=== PATIENT | female | born 1950 | race Caucasian/White ===

== ENCOUNTER 2016-05-21 22:06 | Inpatient (IN) ==
[2016-05-22 00:21] LABS: MANUAL DIFF NEEDED? NO
[2016-05-22 00:26] LABS: BASO% 0.6 % (0.0-0.8); EOS# 0.21 X1000 (0.0-0.7); EOS% 1.9 % (0.0-10.0); HEMATOCRIT 40.2 % (37.0-47.0); HEMOGLOBIN 13.3 g/dL (12.0-16.0); IMM GRAN# 0.05 X1000 (0.0-0.04); IMM GRAN% 0.5 % (0.0-0.5); LYMPH# 3.47 X1000 (1.2-3.4); LYMPH% 31.5 % (20.5-51.1); MCH 27.1 PG (27-31); MCHC 33.1 g/dL (33-37); MCV 81.9 FL (81-99); MONO# 0.76 X1000 (0.11-0.59); MONO% 6.9 % (1.7-9.3); MPV 10.2 FL (7.4-10.4); NEUT% 58.6 % (42.2-75.2); PLT 285 X1000 (130-400); RBC 4.91 XMIL (4.2-5.4)
[2016-05-22 00:31] LABS: URINE CULTURE NEEDED? NO; URINE MICRO REVIEW NEEDED? NO; URINE SOURCE CLEAN CATCH
[2016-05-22 00:33] LABS: INR 0.94; PROTIME 9.8 Seconds (9.2-11.7)
[2016-05-22 00:34] LABS: BILIRUBIN URINE NEGATIVE (NEGATIVE); BLOOD URINE NEGATIVE (NEGATIVE); COLOR YELLOW; GLUCOSE URINE 150 mg/dL (NEGATIVE); LEUKOCYTES URINE NEGATIVE (NEGATIVE); NITRITE URINE NEGATIVE (NEGATIVE); PH URINE 5.5; PROTEIN URINE NEGATIVE (NEGATIVE); SP GRAVITY URINE 1.009; TURBIDITY URINE CLEAR (CLEAR); UR EPITHELIAL CELLS <10 /HPF (<10); URINE BACTERIA NEGATIVE /HPF; URINE RBC <10 /HPF (<10); URINE WBC <10 /HPF (<10); UROBILINOGEN URINE NORMAL (NORMAL)
[2016-05-22 00:50] LABS: AGAP 14; ALBUMIN 3.4 g/dL (3.5-5.0); ALKALINE PHOSPHATASE 140 U/L (32-104); BUN 7 mg/dL (8-22); CALCIUM 9.2 mg/dL (8.8-10.2); CHLORIDE 99 mmol/L (98-107); COSMO 274; GOT 19 U/L (10-30); GPT 14 U/L (10-36); POTASSIUM 4.2 mmol/L (3.5-5.1); SODIUM 135 mmol/L (136-145); TCO2 22 mmol/L (25-35); TOTAL BILIRUBIN 0.14 mg/dL (0.20-1.00); TOTAL PROTEIN 6.8 g/dL (6.3-8.3)
[2016-05-22] MEDS ORDERED: LEVAQUIN PO ONE (02:01)
[2016-05-22] MEDS ORDERED: ROCEPHIN 1 GM/NS 1 GM/50 ML IVPB IV ONE (02:02)
[2016-05-22] MEDS ORDERED: NORCO-7.5 PO ONE (03:00)
[2016-05-22] MEDS: NS 1,000 ML IV SCH ×2 (04:55→14:46)
[2016-05-22] MEDS: ULTRAM PO PRN ×3 (05:11→22:50)
--- NOTE | 2016-05-22 05:13 | HISTORY AND PHYSICAL ---
REASON FOR ADMISSION: Shortness of breath, cough productive of greenish sputum for the last 10 days. HISTORY OF PRESENT ILLNESS: Ms. Trinh Rivera is a 65-year-old lady with past medical history of chronic pancreatitis complicated with insulin-requiring diabetes, COPD, possible pancreatic neoplasm, and diverticulosis, who comes in complaining of 10-day history of shortness of breath, which has been getting worse along with chest congestion and a cough productive of greenish sputum. She said the symptoms have worsened over the last 4 days. She denies any orthopnea or PND. She does admit to having intermittent fevers which are subjective but no chills. She complains of severe pleuritic chest pain with her cough but no anginal-type symptoms. No leg swelling. No palpitations or lightheadedness. The patient also complains of left-sided headache which is intermittent without any photophobia or phonophobia, nausea, or vomiting. No focal weakness, numbness or tingling. Said this has been ongoing for 2 weeks, which she says is unusual for her. She has some visual loss but she says it is not related to her headache. She says it is more associated with recent cardiac surgery. The patient also complains of loose greenish stools about 6 per day, but no blood, no melena. Said this is emanating from her rectum even though she has a colostomy and she is concerned she may have an intra-abdominal infection. REVIEW OF SYSTEMS: Notable for diffuse intermittent abdominal pain with no specific aggravating or relieving factors. No nausea, no vomiting or genitourinary complaints. No polyuria, polydipsia, or polyphagia. Patient says she is feeling a little weak otherwise. Her urine is chronically dark and only gets lightened when she hydrate herself. Otherwise, no other complaints. Twelve system review was done and positive findings are noted as above. ALLERGIES: Morphine and penicillins. HOME MEDICATIONS: DuoNeb q.4 hours, amitriptyline 25 mg daily, gabapentin 100 mg q.8 hours, Lexapro 20 mg q.a.m., Lantus 28 units q.a.m. She takes Creon 6000 units with meals, Prilosec 40 mg q.a.m., Ultram 50 mg 1-2 tablets q.6 hours p.r.n. SURGICAL HISTORY: Patient has had a cholecystectomy, , benign tumor excised from the left side of her head. She has had a colostomy performed. SOCIAL HISTORY: Lives with her son. Smokes half a pack a day. No alcohol or illicit drug use. FAMILY HISTORY: One of her members had pancreatic cancer, Alzheimer's and hepatitis C. No diabetes in first-degree relatives. LAB WORK/DIAGNOSTIC DATA: Her chest film suggestive of a lingular infiltrate versus a hilar mass. White count 11,000, hemoglobin 13 and hematocrit 40, platelets 285,000. Glucose 205, alkaline phosphatase 140, albumin 3.4. PT/PTT is normal. Urinalysis is clear. EKG just shows normal sinus rhythm with no ST or changes consistent with ischemia. PHYSICAL EXAMINATION: VITAL SIGNS: Blood pressure 150/88, heart rate 74, respirations 19, temperature is 97.3 degrees, 96% on room air. GENERAL: She is chronically ill, middle-aged woman who is alert and oriented to person, place, and time with normal mood and affect, is slightly anxious. HEENT: Head is normocephalic, atraumatic. Eyes are DENNIS, EOMI. She is anicteric and not pale. ENT and oropharyngeal exam is grossly normal. No central cyanosis. NECK: Supple. No JVD or carotid bruit. No thyromegaly. CHEST: Decreased air entry both lung bell. There are questionable crepitations in the left upper lung. No wheezes. CARDIOVASCULAR: First and second heart sounds heard. No gallops, murmurs, rubs. Rhythm is regular. ABDOMEN: The patient has a colostomy in the left lower quadrant area. There is some mild right upper quadrant tenderness but no rebound or guarding. ABDOMEN: Soft. No mass or organomegaly appreciated. The aforementioned colostomy is draining brownish stool. No blood noted. No melena noted. RECTAL: Deferred. EXTREMITIES: No edema, clubbing or peripheral cyanosis. Pulses distally are diminished but symmetrical in both extremities. NEUROLOGICAL: No focal deficits. SKIN: Intact with no breakdown lesions or erythema. MUSCULOSKELETAL: Exam is grossly normal otherwise. ASSESSMENT: 1. Left-sided pneumonia. 2. Chronic obstructive pulmonary disease. 3. Chronic pancreatitis. 4. Insulin-requiring diabetes. 5. Worsening left-sided headache. Etiology to be determined. 6. Subacute diarrhea. Etiology to be determined. PLAN: At this time, our primary goal now is to treat pneumonia. Due to the patient's frequent exposure to antibiotics and frequent ER visits, and also her chronic underlying lung disease, I think it would be prudent to cover for Pseudomonas. Start patient on Levaquin and Maxipime. Continue with nebulizer treatments. We will also support patient with O2. Regarding patient's diarrhea supposed diarrhea which is greenish, it was already sent off for stool studies most especially C. difficile. I have ordered a CT scan to evaluate her bowel. Regarding her diabetes, the patient will be managed with insulin and Lantus. The former will be in the form of low sliding scale. DVT prophylaxis with Lovenox. The patient be given some fluids to address her diarrhea. cc: Debbie Arias MD MTDD
--- NOTE | 2016-05-22 05:14 | EKG Report ---
Test Performed on : 05/21/2016 10:24:29 PM Test Reason : SOB Blood Pressure : / mmHG Vent. Rate : 085 BPM Atrial Rate : 085 BPM P-R Int : 144 ms QRS Dur : 072 ms QT Int : 378 ms P-R-T Axes : 080 072 073 degrees QTc Int : 449 ms Normal sinus rhythm. with sinus arrhythmia. Biatrial enlargement Abnormal ECG When compared with ECG of 03-JAN-2014 16:36, No significant change was found Unconfirmed Result
[2016-05-22] MEDS: HUMALOG SUBQ SCH ×4 (06:09→21:19)
[2016-05-22 06:45] LABS: MANUAL DIFF NEEDED? NO
[2016-05-22 06:52] LABS: BASO% 0.8 % (0.0-0.8); EOS# 0.28 X1000 (0.0-0.7); EOS% 2.7 % (0.0-10.0); HEMATOCRIT 40.3 % (37.0-47.0); HEMOGLOBIN 13.2 g/dL (12.0-16.0); IMM GRAN# 0.06 X1000 (0.0-0.04); IMM GRAN% 0.6 % (0.0-0.5); LYMPH# 4.04 X1000 (1.2-3.4); MCH 26.9 PG (27-31); MCHC 32.8 g/dL (33-37); MCV 82.2 FL (81-99); MONO# 0.72 X1000 (0.11-0.59); MONO% 6.9 % (1.7-9.3); MPV 10.2 FL (7.4-10.4); PLT 282 X1000 (130-400)
--- NOTE | 2016-05-22 07:31 | Diag Imaging Result Document ---
PROCEDURE NAME: CHEST-2 VIEWS - 05/21/2016 CHEST X-RAY 2 VIEWS: COMPARISON: 10/06/2015. FINDINGS: There is enlargement of the left hilum. There is some ill-defined infiltrate at the left upper lobe as well. Heart size is normal. No pneumothorax or pleural effusion. IMPRESSION: Left upper lobe pneumonia and possible left hilar mass. Chest CT recommended.
[2016-05-22 07:42] LABS: AGAP 13; ALBUMIN 3.2 g/dL (3.5-5.0); ALKALINE PHOSPHATASE 137 U/L (32-104); BUN 7 mg/dL (8-22); CALCIUM 8.8 mg/dL (8.8-10.2); CHLORIDE 102 mmol/L (98-107); COSMO 274; GOT 24 U/L (10-30); GPT 14 U/L (10-36); POTASSIUM 4.1 mmol/L (3.5-5.1); SODIUM 137 mmol/L (136-145); TCO2 22 mmol/L (25-35); TOTAL BILIRUBIN 0.13 mg/dL (0.20-1.00)
[2016-05-22] MEDS: DUONEB (A & A) INH SCH ×3 (08:13→20:05)
[2016-05-22] MEDS ORDERED: INSULIN PEN NEEDLES ONE ×2 (09:03→12:24)
[2016-05-22] MEDS: PRILOSEC PO SCH (09:21)
[2016-05-22] MEDS: CULTURELLE PO SCH ×2 (09:22→21:19)
[2016-05-22] MEDS: MAXIPIME 1 GM/NS 1 GM/50 ML IVPB IV SCH ×2 (09:22→21:19)
[2016-05-22] MEDS: LOVENOX SUBQ SCH (09:22)
[2016-05-22] MEDS: CREON PO SCH (09:22)
[2016-05-22] MEDS: ELAVIL PO SCH (09:22)
[2016-05-22] MEDS: LEXAPRO PO SCH (09:22)
[2016-05-22] MEDS ORDERED: DILAUDID IV ONE (10:44)
--- NOTE | 2016-05-22 10:58 | Diag Imaging Result Document ---
PROCEDURE NAME: THORAX/ABDOMEN/PELVIS - 05/22/2016 CT CHEST, ABDOMEN, AND PELVIS WITH INTRAVENOUS CONTRAST. DOSE REDUCTION PROTOCOL. CT CHEST WITH CONTRAST: COMPARISON: No comparison films. FINDINGS: There are markedly enlarged mediastinal and left hilar lymph nodes. There is narrowing to the left main pulmonary artery and the upper and lower lobe pulmonary arteries. Mild narrowing to the left main stem bronchus and the upper and lower lobe bronchi. There is a small amount of postobstructive atelectasis. There is scarring in the right apex. Mild emphysema. Tiny nodular density laterally in the left upper lobe on image 41. Minimal basilar atelectasis. No pleural effusions. No cardiomegaly. No thoracic aortic aneurysm or dissection. No enlarged axillary lymph nodes. IMPRESSION: Left perihilar mass/adenopathy with postobstructive atelectasis and infiltrates. CT ABDOMEN AND PELVIS WITH INTRAVENOUS CONTRAST: COMPARISON: 01/12/2016. FINDINGS: There are many pancreatic calcifications. There is intrahepatic and extrahepatic biliary ductal dilatation. The pancreatic duct is dilated. No definite filling defect in the distal common bile duct. The appearance of the pancreatic head has changed very little. The gallbladder has been removed. There is fatty infiltration of the liver. The spleen is not enlarged. Normal adrenal glands. There are several renal cysts. No solid renal masses. No hydronephrosis. No aortic aneurysm. Mild atherosclerosis. There is an ostomy in the left abdomen. The bowel loops are not dilated. There are scattered diverticula in the distal colon. No adjacent inflammation. Normal appendix. The urinary bladder is distended and appears normal. Normal uterus. No pelvic mass. No free air. IMPRESSION: Stable CT of the abdomen and pelvis.
[2016-05-22] MEDS: LANTUS SUBQ SCH (12:27)
--- NOTE | 2016-05-22 16:59 | CONSULTATION ---
DATE OF CONSULTATION: 05/22/2016 REFERRING PHYSICIAN: Debbie Arias M.D. PRIMARY HOSPITALIST: Agustin Zhao M.D. INDICATION FOR CONSULTATION: 1. Pancreatitis. 2. Abdominal pain. 3. Diarrhea. HISTORY OF PRESENT ILLNESS: The patient is a 65-year-old, white female, who has been followed in our clinic for long-standing chronic pancreatitis complicated by diabetes, pancreatic mass consistent with possible neoplasm, diverticulitis requiring a diverting colostomy and COPD. The patient was admitted with shortness of breath and was subsequently found to have a pneumonia. From a GI perspective, she reports increased abdominal pain, secondary to her pancreatitis. She noted increased ostomy output intermittently over the last week. She denies bleeding. She is concerned because she recently noted greenish stools from her rectum even though she has a colostomy. She describes diffuse abdominal tenderness but no nausea or vomiting. She denies fevers and chills. PAST MEDICAL HISTORY: 1. Chronic calcific pancreatitis with possible mass effect. The mass area has been biopsied at least [address] Valencia in [place] as well as [facility] with no evidence of malignancy found. However, she has elevated alpha fetoprotein level, that is worrisome for malignancy. 2. Possible liver mass. 3. Diabetes mellitus. 4. Gastroparesis. 5. Acute diverticulitis status post end colostomy. 6. Diabetic neuropathy. 7. Restless legs. 8. GERD. 9. Obstructive sleep apnea. 10. Chronic nicotine use. 11. Protein calorie malnutrition. 12. Cirrhosis. 13. Depression. 14. Pancreatic cystic lesion, chronic. 15. History of partial small bowel obstruction. 16. Pancreatic insufficiency requiring pancreatic enzyme replacement. 17. Common bile duct obstruction status post ERCP with stent placement and subsequent removal. 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 She is no longer actively drinking. PAST SURGICAL HISTORY: 1. End-colostomy secondary to severe acute diverticulitis. 2. EUS with FNA of the pancreatic mass x3. 3. ERCP with stent placement followed by ERCP with stent removal. 4. Multiple EGDs. 5. Multiple colonoscopies. SOCIAL HISTORY: Patient smokes 1 pack of cigarettes per day. She has smoked for more than 32 years. She states that she is not interested in smoking cessation. In the past , she drank heavily from the time she arose to the time she went to bed. She has been abstinent for approximately 10 years. She is disabled and lives in [place] with her son. One of her children is . ALLERGIES: 1. Morphine. 2. Penicillin. FAMILY HISTORY: Her father of cancer but she is not sure what kind. OBJECTIVE DATA: General: On exam, she is in no acute distress. Vital Signs: Her blood pressure is 142/70, pulse is 91, respirations 20, temperature of 99 degrees. HEENT: Negative for jaundice. Her conjunctivae are normal. Her oropharyngeal mucosa membranes are slightly dry. Lung: Clear to auscultation on the right. On the left, she has end expiratory wheezes with occasional rhonchi and scattered priest. There are E-A changes suggestive of possible pneumonia. Cardiovascular: She has regular rate and rhythm with no gallops or rubs. Abdomen: Reveals normoactive bowel sounds. The abdomen is soft, but diffusely tender. She has a colostomy in the left lower quadrant. Extremities: Bilaterally are negative for cyanosis, clubbing, or edema. Rectal: Exam was deferred at this time as the patient had been sleeping. OBJECTIVE DATA: Remarkable for hemoglobin of 13.2 with hematocrit of 40.3, and a white count of 10.37. She has 282,000 platelets. Her PT is 9.8 with an INR 0.94. Sodium is 137, potassium 4.1, chloride 102, CO2 22, BUN 7, creatinine 0.7 with a glucose of 130. Calcium is 8.8, total bilirubin 0.13, AST 24, ALT 14, alkaline phosphatase 137, total protein 7.0 with an albumin of 3.2. It should be noted that she has a chronically elevated CEA and CA-19-9. Her alpha fetoprotein is normal. Her tumor markers were last checked in 2016. Chest, abdomen and pelvis CT is remarkable for left hilar mass with adenopathy and postobstructive atelectasis and infiltrate. Her abdomen reveals chronic calcific pancreatitis, fatty liver, and multiple renal cyst. Her ostomy was again visualized. There were diverticula in the colon. There were no acute changes. IMPRESSION: 1. Acute on chronic pancreatitis. 2. Possible diversion colitis in the rectum. 3. Pneumonia. 4. Left perihilar mass with adenopathy. 5. Fatty liver. 6. Alcohol liver disease. 7. Known gastroesophageal reflux disease. 8. No acute abdominal changes on CT scan. 9. Elevated liver function tests. 10. Elevated tumor markers. RECOMMENDATIONS: 1. I would continue supportive care with regard to her pancreatitis. She has been clinically stable. Although she had pain as an outpatient, she states that her pain is much better since she has been admitted and received IV fluids. Overall, her pancreatitis appears to be at her baseline. 2. Because of the new lung mass, I recommend repeating the CEA and CA-19-9. 3. Continue Prilosec 40 mg daily as she is clinically improved from a GI standpoint. 4. Continue the diabetic diet as you are doing. 5. With regard to her lung lesion, will consult Dr. Spencer Devlin for evaluation and possible bronchoscopy. 6. I will monitor her rectal seepage. Her pneumonia precludes GI endoscopy at this time. Overall, the patient is relatively stable from a GI perspective. We will continue to follow along with you. cc: MD Garima Andrews MD James Boyle Omar J. Sosa-Chirinos, MD MTDD
[2016-05-22] MEDS: LEVAQUIN 750 MG in NS 150 ML IV SCH (17:12)
--- NOTE | 2016-05-22 20:05 | CONSULTATION ---
DATE OF CONSULTATION: 05/22/2016 REQUESTING PHYSICIAN: Blanca Mayberry MD REASON FOR CONSULTATION: Lung mass. HISTORY OF PRESENT ILLNESS: Ms Rivera is a 65-year-old white female with history of chronic pancreatitis, status post multiple pancreatic biopsies which have been negative for malignancy, history of increasing CEA level and CA-19-9 level who presented to the emergency room with increased cough and chest wall pain with deep inspiration. The patient has lost approximately 8 pounds over the last 2 months. Chest x-ray revealed left-sided pneumonia with possible left hilar mass, which could not be seen on prior film last September. CT scan of the chest, abdomen and pelvis was performed. There are mediastinal nodes, extensive subcarinal nodes, narrowing of the left main pulmonary artery, apparent obstruction of the apical segment of the left upper lobe, probable obstruction of a basilar directed segment in the left lower lobe with postobstructive pneumonia. CT scan of the abdomen and pelvis revealed chronic pancreatic calcifications, which have not changed. PAST MEDICAL HISTORY/PROBLEM LIST: 1. Recurrent pancreatitis with multiple biopsies as per above. 2. Status post cholecystectomy. 3. Diabetes mellitus. 4. Diverticulitis status post end colostomy. 5. Neuropathy. 6. Obstructive sleep apnea. 7. Cirrhosis. 8. Depression. 9. History of ERCP with stent placement and removal in the common bile duct. SOCIAL HISTORY: Ongoing tobacco use. Remote history of alcohol use. FAMILY HISTORY: Positive for an unspecified cancer in her father. REVIEW OF SYSTEMS: Notable for cough, chest pain on cough and movement, minimal production of sputum, low-grade fevers. PHYSICAL EXAMINATION: General: Exam reveals a well-developed, well-nourished, white female, who appears older than her stated age of 65. Vital signs: BP 142/53, heart rate 82, respiration rate 20, oxygen saturation 95% on room air. HEENT: Pupils are equal and reactive. Oropharynx is clear. Neck: Supple. Chest: Reveals rhonchi in the left hemithorax. Cardiac: Distant heart sounds. Normal S1, normal S2. Abdomen: Soft and without hepatosplenomegaly. Extremities: Without edema. IMPRESSION: Mediastinal adenopathy/mediastinal mass with narrowing of major pulmonary arteries and probable airway obstruction. Presentation is most consistent with a bronchogenic carcinoma. 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 RECOMMENDATIONS: 1. Continue antibiotics through the weekend. 2. Bronchoscopy with biopsies scheduled for Thursday at 8 a.m. 3. Additional recommendations pending hospital course. cc: Spencer Devlin MD
[2016-05-22] MEDS: NEURONTIN PO PRN (21:20)
--- NOTE | 2016-05-23 01:40 | ED EKG INTERP ---
This chart was entered by Whit Travis Scribe, acting as scribe for Anibal Mcneil MD. EKG Interpretation - EKG Time of EKG reading by physician:: 22:24 EKG Read and Signed by:: Anibal Mcneil EKG Interpretation (*Must complete 3 of following elements*): Abnormal Rate: 85 Rhythm: NSR W/ SINUS ARRHYTHMIA QRS: other (BIATRIAL ENLARGEMENT) This chart was documented by the indicated scribe, (Whit Travis Scribe) and accurately reflects the services I performed and decisions made by me, Anibal Mcneil MD, as attested by the provider's signature.
[2016-05-23] MEDS: DUONEB (A & A) INH SCH ×4 (03:17→20:23)
[2016-05-23] MEDS: HUMALOG SUBQ SCH ×4 (06:17→20:02)
[2016-05-23] MEDS: ULTRAM PO PRN ×2 (06:17→13:21)
[2016-05-23 06:39] LABS: MANUAL DIFF NEEDED? NO
[2016-05-23 06:47] LABS: BASO% 0.7 % (0.0-0.8); EOS# 0.19 X1000 (0.0-0.7); EOS% 2.2 % (0.0-10.0); HEMATOCRIT 38.8 % (37.0-47.0); HEMOGLOBIN 12.7 g/dL (12.0-16.0); IMM GRAN# 0.05 X1000 (0.0-0.04); IMM GRAN% 0.6 % (0.0-0.5); LYMPH# 2.65 X1000 (1.2-3.4); LYMPH% 30.9 % (20.5-51.1); MCH 27.3 PG (27-31); MCHC 32.7 g/dL (33-37); MCV 83.3 FL (81-99); MONO# 0.69 X1000 (0.11-0.59); MPV 10.4 FL (7.4-10.4); NEUT% 57.6 % (42.2-75.2); PLT 264 X1000 (130-400); RBC 4.66 XMIL (4.2-5.4)
[2016-05-23 07:13] LABS: AGAP 10; BUN 7 mg/dL (8-22); CALCIUM 8.7 mg/dL (8.8-10.2); CHLORIDE 104 mmol/L (98-107); COSMO 276; POTASSIUM 4.3 mmol/L (3.5-5.1); SODIUM 139 mmol/L (136-145); TCO2 25 mmol/L (25-35)
[2016-05-23] MEDS: LEXAPRO PO SCH (08:44)
[2016-05-23] MEDS: CULTURELLE PO SCH ×2 (08:44→20:01)
[2016-05-23] MEDS: LOVENOX SUBQ SCH (08:45)
[2016-05-23] MEDS: ELAVIL PO SCH (08:45)
[2016-05-23] MEDS: CREON PO SCH (08:45)
[2016-05-23] MEDS: PRILOSEC PO SCH (08:45)
[2016-05-23] MEDS: LANTUS SUBQ SCH (08:45)
[2016-05-23] MEDS: MAXIPIME 1 GM/NS 1 GM/50 ML IVPB IV SCH ×2 (09:01→22:27)
[2016-05-23] MEDS: NORCO-5 PO PRN ×2 (14:56→20:00)
--- NOTE | 2016-05-23 15:09 | PROGRESS NOTE ---
DATE: 05/23/2016 SUBJECTIVE: Patient complains of pain all over. Complains of pain with deep inspiration. Denies any cough or congestion. Denies any fevers. Denies any blurred vision, headaches, or change in her vision. PHYSICAL: Vital Signs: Stable and reviewed. Temperature 98 degrees, pulse 81, respiratory rate 20, BP 140/49, saturation 96% on room air. General Appearance: The patient is awake, alert. She is currently in no respiratory distress. Patient is pleasant to talk with. HEENT: Normocephalic. Neck: Supple. CV: Regular rate. Chest: Relatively clear. Abdomen: Soft. Extremities: Moves all extremities. Neurologic: No focal changes. DIAGNOSTIC DATA: CBC and CMP essentially normal. ASSESSMENT: 1. Left-sided pneumonia. 2. Chronic obstructive pulmonary disease with mild exacerbation. 3. Chronic pancreatitis. 4. Mediastinal mass with narrowing of pulmonary arteries, certainly concerning for bronchogenic carcinoma. PLAN: We will continue patient on antibiotics. We will add [place] for pain control. We will continue to encourage. Follow her blood sugars. Dr. Devlin has been consulted and plans on bronchoscopy early in the week. Continue Levaquin and cefepime. Hopefully we can change the Levaquin to p.o. in the morning. cc: Vince Putnam MD
[2016-05-23] MEDS: LEVAQUIN 750 MG in NS 150 ML IV SCH (17:43)
[2016-05-24] MEDS: DUONEB (A & A) INH SCH ×2 (03:10→08:05)
[2016-05-24] MEDS: HUMALOG SUBQ SCH ×4 (06:13→22:02)
[2016-05-24] MEDS: NORCO-5 PO PRN ×2 (06:14→10:19)
[2016-05-24] MEDS: ELAVIL PO SCH (10:18)
[2016-05-24] MEDS: LOVENOX SUBQ SCH (10:18)
[2016-05-24] MEDS: LEXAPRO PO SCH (10:19)
[2016-05-24] MEDS: MAXIPIME 1 GM/NS 1 GM/50 ML IVPB IV SCH ×2 (10:19→21:44)
[2016-05-24] MEDS: CULTURELLE PO SCH ×2 (10:19→21:44)
[2016-05-24] MEDS: PRILOSEC PO SCH (10:20)
[2016-05-24] MEDS: LANTUS SUBQ SCH ×2 (10:21→10:29)
[2016-05-24] MEDS: CREON PO SCH (10:22)
--- NOTE | 2016-05-24 11:39 | PROGRESS NOTE ---
DATE: 05/24/2016 SUBJECTIVE: The patient notes that she is still hurting on the left side of her chest but denies any true shortness of breath or palpitations. States the [place] did not help. Denies any fevers or chills otherwise. Denies any production to her cough. PHYSICAL: Temperature 97, pulse 85, respiratory rate 18, BP 140/45.General: Patient well developed, well nourished. She is currently in no real respiratory distress. She is awake, alert. Neck: Supple. CV: Regular rate. Chest: Relatively clear. Abdomen: Soft. Extremities: Moves all extremities. Neurologic: No changes. LABS: No current labs today. ASSESSMENT: 1. Left-sided pneumonia. 2. COPD with mild exacerbation. 3. Chronic pancreatitis improving. 4. Situational depression. Patient states that she is not sure if this mass biopsy becomes cancer that she would actually treat it. 5. Mediastinal adenopathy with a mediastinal mass for biopsy 1st of the week. 6. Diarrhea resolved. PLAN: We will increase nicotine patch. Again continue to try to encourage Ms. Rivera to get out of bed, to eat a regular diet. We will not change her antibiotics currently. cc: Vince Putnam MD
[2016-05-24] MEDS ORDERED: NICODERM PATCH TD ONE (12:41)
[2016-05-24] MEDS: NORCO-10 PO PRN ×3 (14:37→22:43)
[2016-05-24] MEDS: LEVAQUIN 750 MG in NS 150 ML IV SCH (17:52)
[2016-05-24] MEDS: ALBUTEROL NEB INH SCH (20:30)
[2016-05-24] MEDS: ULTRAM PO PRN (21:43)
[2016-05-25] MEDS: NORCO-10 PO PRN ×5 (03:13→20:35)
[2016-05-25] MEDS: HUMALOG SUBQ SCH ×4 (06:15→22:34)
[2016-05-25 07:01] LABS: HEMATOCRIT 45.4 % (37.0-47.0); HEMOGLOBIN 14.6 g/dL (12.0-16.0); MCH 27.1 PG (27-31); MCHC 32.2 g/dL (33-37); MCV 84.4 FL (81-99); MPV 10.7 FL (7.4-10.4); RBC 5.38 XMIL (4.2-5.4)
[2016-05-25 07:24] LABS: AGAP 15; ALBUMIN 3.3 g/dL (3.5-5.0); ALKALINE PHOSPHATASE 182 U/L (32-104); BUN 9 mg/dL (8-22); CALCIUM 9.4 mg/dL (8.8-10.2); CHLORIDE 98 mmol/L (98-107); COSMO 267; GOT 139 U/L (10-30); GPT 62 U/L (10-36); MAGNESIUM 1.8 mg/dL (1.5-2.7); POTASSIUM 5.3 mmol/L (3.5-5.1); SODIUM 134 mmol/L (136-145); TCO2 21 mmol/L (25-35); TOTAL BILIRUBIN 0.49 mg/dL (0.20-1.00); TOTAL PROTEIN 7.4 g/dL (6.3-8.3)
[2016-05-25] MEDS: ALBUTEROL NEB INH SCH ×2 (08:15→19:40)
[2016-05-25] MEDS: MAXIPIME 1 GM/NS 1 GM/50 ML IVPB IV SCH ×2 (09:23→22:36)
[2016-05-25] MEDS: CULTURELLE PO SCH ×2 (09:24→20:35)
[2016-05-25] MEDS: LEXAPRO PO SCH (09:24)
[2016-05-25] MEDS: NICODERM PATCH TD SCH (09:24)
[2016-05-25] MEDS: PRILOSEC PO SCH (09:24)
[2016-05-25] MEDS: ELAVIL PO SCH (09:24)
[2016-05-25] MEDS: LANTUS SUBQ SCH (09:26)
[2016-05-25] MEDS: CREON PO SCH (09:27)
[2016-05-25] MEDS: ULTRAM PO PRN (10:21)
[2016-05-25] MEDS: PROTONIX IV SCH (12:29)
[2016-05-25] MEDS: DIFLUCAN PO SCH (12:29)
--- NOTE | 2016-05-25 13:30 | PROGRESS NOTE ---
DATE: 05/25/2016 SUBJECTIVE: Patient without any new complaints. She notes that the increase in pain medication helped some. She is still having left-sided pain and still having occasional shortness of breath. Notes that she is having a little more difficulty swallowing today. States she feels like food gets hung at times. OBJECTIVE: Vital Signs: Reviewed. Temperature 97 degrees, pulse 86, respiratory rate 18, blood pressure 111/60. Satting 97% on room air. General: Patient is well-developed, well-nourished. She is currently in no real respiratory distress. She is pleasant to talk with. Sitting up in bed eating breakfast. HEENT: Normocephalic, atraumatic. DENNIS. Neck: Supple. Cardiovascular: Regular rate. Chest: Relatively clear. Abdomen: Soft. Extremities: Moves all extremities. Neurologic: No changes. ASSESSMENT: 1. Chronic reflux. 2. Dysphagia. 3. Left-sided pneumonia. 4. Insulin-requiring diabetes. 5. Mediastinal mass with narrowing of the pulmonary arteries. 6. Chronic tobacco abuse. Continue nicotine patch. PLAN: We will keep patient NPO after midnight. Continue current antibiotics. We will add Diflucan and change to Protonix IV to see if this will help her chronic reflux as well as her dysphagia. Continue nicotine patch. She is scheduled for bronchoscopy in the a.m. Potassium was elevated. We will recheck. CA-19-9 was elevated at 1.7. cc: Vince Putnam MD
[2016-05-25] MEDS: LEVAQUIN 750 MG in NS 150 ML IV SCH (20:35)
[2016-05-26] MEDS: NORCO-10 PO PRN ×4 (00:53→20:14)
[2016-05-26] MEDS: PROTONIX IV SCH ×3 (00:58→23:44)
[2016-05-26] MEDS: SODIUM CHLORIDE 0.9% INJ SCH (00:58)
[2016-05-26] MEDS: HUMALOG SUBQ SCH ×4 (06:00→20:15)
[2016-05-26 06:12] LABS: HEMATOCRIT 40.8 % (37.0-47.0); HEMOGLOBIN 13.2 g/dL (12.0-16.0); MCH 27.4 PG (27-31); MCHC 32.4 g/dL (33-37); MCV 84.6 FL (81-99); MPV 10.4 FL (7.4-10.4); RBC 4.82 XMIL (4.2-5.4)
[2016-05-26 06:25] LABS: AGAP 14; ALBUMIN 3.3 g/dL (3.5-5.0); ALKALINE PHOSPHATASE 167 U/L (32-104); BUN 8 mg/dL (8-22); CALCIUM 9.3 mg/dL (8.8-10.2); CHLORIDE 101 mmol/L (98-107); COSMO 280; GOT 75 U/L (10-30); GPT 56 U/L (10-36); MAGNESIUM 1.7 mg/dL (1.5-2.7); POTASSIUM 4.3 mmol/L (3.5-5.1); SODIUM 140 mmol/L (136-145); TCO2 25 mmol/L (25-35); TOTAL BILIRUBIN 0.34 mg/dL (0.20-1.00); TOTAL PROTEIN 6.5 g/dL (6.3-8.3)
[2016-05-26] MEDS ORDERED: XYLOCAINE 2% ONE (07:25)
[2016-05-26] MEDS ORDERED: XYLOCAINE 1% ONE (07:25)
[2016-05-26] MEDS ORDERED: XYLOCAINE 2% VISCOUS ONE (07:25)
[2016-05-26] MEDS ORDERED: EPINEPHRINE ONE (07:26)
[2016-05-26] MEDS ORDERED: SODIUM CHLORIDE 0.9% 20 ML ONE (07:26)
[2016-05-26] MEDS ORDERED: SODIUM CHLORIDE 0.9% 10 ML ONE (07:30)
[2016-05-26] MEDS ORDERED: VERSED ONE (09:36)
[2016-05-26] MEDS ORDERED: DIPRIVAN 1% ONE (09:37)
[2016-05-26] MEDS: MAXIPIME 1 GM/NS 1 GM/50 ML IVPB IV SCH ×2 (10:46→22:52)
[2016-05-26] MEDS ORDERED: ANESTHESIA PB SET 88 IN 5742 ONE (11:19)
[2016-05-26] MEDS ORDERED: LR 1,000 ML ONE (11:19)
[2016-05-26] MEDS: NICODERM PATCH TD SCH (11:37)
[2016-05-26] MEDS: CREON PO SCH (11:37)
[2016-05-26] MEDS: DIFLUCAN PO SCH (11:38)
[2016-05-26] MEDS: LANTUS SUBQ SCH (11:38)
[2016-05-26] MEDS: LEXAPRO PO SCH (11:38)
[2016-05-26] MEDS: ELAVIL PO SCH (11:38)
[2016-05-26] MEDS: CULTURELLE PO SCH ×2 (11:39→20:15)
--- NOTE | 2016-05-26 13:13 | OPERATIVE NOTE ---
PROCEDURE DATE: 05/26/2016 PROCEDURE PERFORMED: 1. Bronchoscopy with Cochran needle aspiration. 2. Endobronchial biopsies, washings. CLINICAL INDICATIONS: A 65-year-old with extensive tobacco history, who has extensive mediastinal adenopathy and possible postobstructive pneumonia. DESCRIPTION OF PROCEDURE: After informed consent was obtained, patient was brought to the operating room where the procedure was performed. A time-out was performed as per routine. Monitored anesthesia care was provided by the anesthesia services group. Topical anesthesia was achieved with viscous lidocaine to the right nostril with 2% lidocaine instilled above the vocal cords and 1% lidocaine instilled below the vocal cords. After conscious sedation and topical anesthesia were achieved, bronchoscope was advanced through the right nostril to the level of the vocal cords. The vocal cords were smooth and without lesions. The bronchoscope was advanced into the trachea. No endotracheal lesions were identified. Airways to the right mainstem, right upper lobe, right middle lobe, and right lower lobe were patent and without lesions. The bronchoscope was directed to the left side. The airways to the apical posterior segment were edematous, but appeared patent. The lingula was patent without lesions. The mucosa surrounding the entrance of the superior segment of the left lower lobe had a cobblestoning look, but gross tumor was not identified. There was edema in the entrance of this airway, but it was not obstructed. Airways to the basilar segments were patent and without lesions. The bronchoscope was retracted back into the trachea. A Cochran needle aspirate was performed at the 2 o'clock position in the distal trachea. Cytology and a limited amount of tissue was obtained. The bronchoscope was directed to the sub-carinal region. Below the larry, in the right mainstem, Cochran aspirates were performed on the medial wall of the cartilaginous right mainstem in the subcarinal region. Cytology and limited amount of tissue were also obtained from this region. The bronchoscope was directed to the superior segment of the left lower lobe. Biopsies were taken from the entrance of the left lower lobe, but good tissue was difficult to obtain due to the position. The superior segment of the left lower lobe was engaged and limited proximal endobronchial biopsies were taken from this area. Bronchoscope was directed to the apical posterior segment of the left upper lobe. This entrance was difficult to engage. The patient had a drop in oxygen saturation into the low 80s. Bronchoscope was retracted back to the trachea and all secretions were suctioned clear. Despite attempts to augment oxygenation, oxygen saturation remained in the low 80s. There was difficulty with engaging the apical posterior segment of the left upper lobe along with persistent low oxygen saturations. The procedure was terminated. With removal of the scope, patient's oxygen saturation promptly returned into the low 90s. IMPRESSION: 1. No overt endobronchial tumor identified. 2. Mucosal abnormality at the entrance of the superior segment of the left lower lobe with edema of this segment. 3. Edema of the apical posterior segment of the left upper lobe. 4. Status post washing of the trachea. 5. Status post Cochran needle aspirate of the distal trachea. 6. Status post Cochran needle aspirate in the subcarinal region to the right main stem. 7. Status post biopsies of the entrance and proximal superior segment of the left lower lobe. 8. Edema without overt obstruction of the apical posterior segment of the left upper lobe, biopsies could not be performed due to oxygen desaturation during the procedure. cc: Spencer Devlin MD
[2016-05-26] MEDS: ALBUTEROL NEB INH SCH ×2 (15:59→19:45)
[2016-05-26] MEDS: LEVAQUIN 750 MG in NS 150 ML IV SCH (20:28)
--- NOTE | 2016-05-26 21:17 | PROGRESS NOTE ---
DATE: 05/26/2016 SUBJECTIVE: The patient had a bronchoscopy with biopsy this morning. She has no complaints at this time. OBJECTIVE: Vital Signs: Temperature 98 degrees, blood pressure 120/63, heart rate 88, respirations 20, O2 saturations 94% on 4 L nasal cannula. General: This is a chronically ill- appearing, elderly female, sitting up in bed. Psych: In no acute distress. HEENT: Normocephalic atraumatic. Heart: S1, S2. Normal. Tachycardic. Lungs: Equal air entry bilaterally. No crackles. No rales. Abdomen: Positive bowel sounds. Soft, nontender, nondistended. Extremities: No edema. No cyanosis. No calf tenderness. Neurological: Patient is alert and oriented x3. LABS: Reviewed. ASSESSMENT AND PLAN: 1. Pneumonia. Continue on broad-spectrum antibiotic therapy, bronchodilators and supplemental oxygen. 2. Perihilar mass s/p bronchoscopy status post endobronchial biopsy. We will await the pathology report. Pulmonary is following. 3. Chronic calcific pancreatitis. Aware. 4. Obstructive sleep apnea. Aware. 5. Gastroesophageal reflux disease. Continue on Protonix. 6. Alcoholic liver disease. Aware. 7. Diabetes mellitus type 2. Continue on Lantus plus sliding scale insulin. 8. Situational depression. Continue on Lexapro. cc: Kayy Land MD MTDD
[2016-05-27] MEDS: NORCO-10 PO PRN ×5 (00:03→23:25)
[2016-05-27] MEDS: NEURONTIN PO PRN ×3 (05:44→19:48)
[2016-05-27] MEDS: ULTRAM PO PRN ×2 (05:44→11:26)
[2016-05-27] MEDS: HUMALOG SUBQ SCH ×4 (06:00→22:03)
[2016-05-27 06:12] LABS: MANUAL DIFF NEEDED? NO
[2016-05-27 06:16] LABS: BASO% 0.8 % (0.0-0.8); EOS# 0.27 X1000 (0.0-0.7); EOS% 3.2 % (0.0-10.0); HEMATOCRIT 39.5 % (37.0-47.0); IMM GRAN# 0.05 X1000 (0.0-0.04); IMM GRAN% 0.6 % (0.0-0.5); LYMPH# 2.47 X1000 (1.2-3.4); LYMPH% 28.9 % (20.5-51.1); MCH 27.4 PG (27-31); MCHC 32.9 g/dL (33-37); MCV 83.3 FL (81-99); MONO# 0.68 X1000 (0.11-0.59); MPV 10.6 FL (7.4-10.4); NEUT% 58.5 % (42.2-75.2); PLT 232 X1000 (130-400); RBC 4.74 XMIL (4.2-5.4)
[2016-05-27 06:37] LABS: AGAP 15; ALBUMIN 3.2 g/dL (3.5-5.0); ALKALINE PHOSPHATASE 160 U/L (32-104); BUN 6 mg/dL (8-22); CALCIUM 8.9 mg/dL (8.8-10.2); CHLORIDE 103 mmol/L (98-107); COSMO 280; GOT 44 U/L (10-30); GPT 42 U/L (10-36); POTASSIUM 3.9 mmol/L (3.5-5.1); SODIUM 140 mmol/L (136-145); TCO2 22 mmol/L (25-35); TOTAL BILIRUBIN 0.35 mg/dL (0.20-1.00); TOTAL PROTEIN 6.9 g/dL (6.3-8.3)
[2016-05-27] MEDS: ELAVIL PO SCH (09:36)
[2016-05-27] MEDS: CREON PO SCH (09:36)
[2016-05-27] MEDS: CULTURELLE PO SCH ×3 (09:36→22:03)
[2016-05-27] MEDS: LEXAPRO PO SCH (09:36)
[2016-05-27] MEDS: DIFLUCAN PO SCH (09:36)
[2016-05-27] MEDS: NICODERM PATCH TD SCH (09:36)
[2016-05-27] MEDS: MAXIPIME 1 GM/NS 1 GM/50 ML IVPB IV SCH ×3 (09:37→22:04)
[2016-05-27] MEDS: LOVENOX SUBQ SCH (09:37)
[2016-05-27] MEDS: LANTUS SUBQ SCH (09:48)
[2016-05-27] MEDS: SODIUM CHLORIDE 0.9% INJ SCH (13:18)
[2016-05-27] MEDS: PROTONIX IV SCH (13:18)
--- NOTE | 2016-05-27 15:46 | PROGRESS NOTE ---
DATE: 05/27/2016 SUBJECTIVE: The patient states that she still has chest pain but otherwise has no other complaints. OBJECTIVE: Vital Signs: Temperature 97.6 degrees, blood pressure 109/67, heart rate 91, respirations 20, O2 saturations 98% on 2 L nasal cannula. General: This is a chronically ill- appearing, elderly female, lying in bed, in no acute distress. Head: Normocephalic atraumatic. Heart: S1, S2. Normal. Regular rate and rhythm. Lungs: Clear to auscultation bilaterally. Abdomen: Positive bowel sounds. Soft, nontender, nondistended. Extremities: No edema. No cyanosis. No calf tenderness. Neurologic: The patient is alert and oriented x3. LABS: Reviewed. ASSESSMENT AND PLAN: 1. Perihilar mass status post bronchoscopy with endobronchial biopsy. The pathology report is currently pending. 2. Pneumonia. The patient is currently on cefepime and Levaquin. The white count is normal and the patient has been afebrile. 3. Chronic calcific pancreatitis. Aware. 4. Gastroesophageal reflux disease. Continue on Protonix. 5. Alcoholic liver disease. Aware. 6. Diabetes mellitus type 2. Continue on Lantus plus sliding scale insulin. 7. Situational depression. Continue on Lexapro. cc: Kayy Land MD
--- NOTE | 2016-05-27 17:52 | CONSULTATION ---
DATE OF CONSULTATION: 05/27/2016 CONCLUSION: Patient is admitted to the hospital with a perihilar mass. She has undergone bronchoscopy performed by Dr. Devlin, who has biopsied the mass and done endobronchial biopsies and bronchial washings. There appears to be a postobstructive atelectasis and/or infiltrate. RECOMMENDATIONS: I agree with decision to treat the patient with cefepime. I have discontinued Levaquin. DISCUSSION: The patient tells me that for the past week, she has been having cough and dyspnea. In the past 2 months she has lost approximately 20 pounds in weight. She did not say she had any hemoptysis. She is having pain on the left side, which is pleuritic in nature. She also complains of pain in her forehead, where she previously had surgery performed. That has also just started in the past week. LABORATORY STUDIES: Thus far show she has a CBC, which has a white count of 8550, hemoglobin 13 and platelet count 232,000. Creatinine is 0.7. GFR is greater than 60. Liver function studies are elevated. Bronchial washings showed negative AFB and fungal stains. Culture from one of the bronchial washings shows normal lanette. Biopsies from the bronchoscopy are pending. The patient has blood cultures which are negative. Clostridium difficile toxin is negative. CAT scan of the chest, abdomen and pelvis shows a left perihilar mass with adenopathy and postobstructive atelectasis and infiltrate. No endobronchial tumor was seen. CAT scan of the abdomen and pelvis were normal. 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 She delivered 1 of her children by . She has had a tubal ligation. PAST MEDICAL HISTORY/PAST SURGICAL HISTORY: Previous hospitalizations and operations: She has had labor and deliveries, a , tubal ligation. A colostomy with colon resection. Cholecystectomy. Hospitalizations for pancreatitis. She has had cataract surgery. She had a tumor removed from her left side of the forehead. Medical Diseases: Positive for diabetes mellitus, pancreatitis, emphysema and cigarette smoking. Infectious Disease history: Positive for pneumonia, negative for UTI. FAMILY HISTORY: Positive for diabetes mellitus, myocardial infarction and cancer. SOCIAL HISTORY: [place] She is . She lives with her son. She smoke cigarettes. She does not drink alcoholic beverages. She is disabled. MEDICATIONS: Her home medications include the following, she is on Ultram, Prilosec, Creon insulin, gabapentin, Lexapro, amitriptyline and albuterol inhaler. ALLERGIES: She is allergic to morphine and penicillin. PHYSICAL EXAMINATION: Vital Signs: Temperature is 97.6, pulse 91, respirations 20, blood pressure 109/67. General: This is a chronically ill-appearing, middle-aged female. She is in no acute distress. HEENT: She can hear my spoken words and see near objects. No drainage was noted from the nose or ears. She is missing most of her teeth in her mouth. There is an indentation on the left side of the forehead where patient had a tumor removed. Neck: No meningismus. Thorax: Increased AP diameter of the chest. Lungs: Clear to auscultation. Cardiovascular: Regular heart rate. Abdomen: Soft without masses or tenderness. Abdomen also has a colostomy in place. Neurologic: Patient is alert. She can move her extremities. There is no tremor. Sensation is intact to touch. Her memory, as regarding her medical history is intact. Integument: No rash. Thank you for the consult. cc: Wayne Alves MD
[2016-05-27] MEDS: ALBUTEROL NEB INH SCH (20:20)
[2016-05-28] MEDS: NORCO-10 PO PRN ×3 (03:00→20:52)
[2016-05-28] MEDS: SODIUM CHLORIDE 0.9% INJ SCH ×2 (03:01→13:22)
[2016-05-28] MEDS: PROTONIX IV SCH ×2 (03:01→13:22)
[2016-05-28] MEDS: HUMALOG SUBQ SCH ×4 (06:22→20:53)
[2016-05-28 07:28] LABS: MANUAL DIFF NEEDED? NO
[2016-05-28] MEDS: ALBUTEROL NEB INH SCH ×3 (07:35→20:16)
[2016-05-28 07:43] LABS: BASO% 0.9 % (0.0-0.8); EOS# 0.34 X1000 (0.0-0.7); EOS% 3.9 % (0.0-10.0); HEMATOCRIT 40.2 % (37.0-47.0); IMM GRAN# 0.05 X1000 (0.0-0.04); IMM GRAN% 0.6 % (0.0-0.5); LYMPH# 2.94 X1000 (1.2-3.4); LYMPH% 33.6 % (20.5-51.1); MCH 27.3 PG (27-31); MCHC 32.3 g/dL (33-37); MCV 84.3 FL (81-99); MONO# 0.79 X1000 (0.11-0.59); MPV 10.8 FL (7.4-10.4); PLT 250 X1000 (130-400); RBC 4.77 XMIL (4.2-5.4)
[2016-05-28] MEDS: ULTRAM PO PRN ×2 (07:57→13:29)
[2016-05-28] MEDS: DIFLUCAN PO SCH (08:00)
[2016-05-28] MEDS: CREON PO SCH (08:00)
[2016-05-28] MEDS: LEXAPRO PO SCH (08:00)
[2016-05-28] MEDS: ELAVIL PO SCH (08:00)
[2016-05-28 08:01] LABS: AGAP 12; BUN 5 mg/dL (8-22); CALCIUM 9.4 mg/dL (8.8-10.2); CHLORIDE 104 mmol/L (98-107); COSMO 281; POTASSIUM 4.4 mmol/L (3.5-5.1); SODIUM 142 mmol/L (136-145); TCO2 26 mmol/L (25-35)
[2016-05-28] MEDS: CULTURELLE PO SCH ×2 (08:01→20:53)
[2016-05-28] MEDS: LANTUS SUBQ SCH (08:01)
[2016-05-28] MEDS: NICODERM PATCH TD SCH (08:01)
[2016-05-28] MEDS: LOVENOX SUBQ SCH (08:01)
[2016-05-28] MEDS: MAXIPIME 1 GM/NS 1 GM/50 ML IVPB IV SCH ×3 (09:33→23:12)
[2016-05-28] MEDS: NEURONTIN PO PRN (09:41)
[2016-05-28 12:39] LABS: URIC ACID 4.9 mg/dL (2.4-5.7)
--- NOTE | 2016-05-28 12:51 | PROGRESS NOTE ---
DATE: 05/28/2016 SUBJECTIVE: The patient is resting comfortably in bed, in no acute distress. OBJECTIVE: Vital Signs: Temperature 98 degrees, blood pressure 121/72, heart rate 83, respirations 20, O2 saturations 95% on 2 L nasal cannula. General: This is an elderly female, sitting up in bed eating breakfast. Head: Normocephalic atraumatic. Heart: S1, S2. Normal. Regular rate and rhythm. Lungs: Clear to auscultation bilaterally. Abdomen: Positive bowel sounds. Soft, nontender, nondistended. Extremities: No edema. No cyanosis. No calf tenderness. Neurologic: The patient is alert and oriented x3. LABS: White blood cell count 8.7, hemoglobin 13, hematocrit 40, platelets 250, 000. Sodium 142, potassium 4.4, chloride 104, CO2 26. BUN 5, creatinine 0.7, glucose 115. ASSESSMENT AND PLAN: 1. Suspected lung cancer status post bronchoscopy with endobronchial biopsy. 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 Oncology has been consulted. 2. Pneumonia. Continue on cefepime. ID is following. 3. Chronic calcific pancreatitis. Aware. 4. Alcoholic liver disease. The patient is in remission. 5. GERD. Continue on Protonix. 6. Situational depression. Continue on Lexapro. 7. Diabetes mellitus type 2. Continue on Lantus plus sliding scale insulin. cc: Kayy Land MD MTDD
--- NOTE | 2016-05-28 15:46 | CONSULTATION ---
DATE OF CONSULTATION: 05/28/2016 REASON FOR CONSULTATION: Suspected small cell lung cancer, patient known to us. HISTORY OF PRESENT ILLNESS: Ms. Rivera is a 65-year-old, female, who is known to us as she was previously sent to our office in regards to a pancreatic mass. The patient had a workup of this pancreatic mass, including PET scans and evaluation at [facility]. She is also status post biopsy. It appears that she had chronic pancreatitis. No malignancy was ever found. The patient has subsequently been lost to followup. Her last office visit with us was 12/04/2014. We were consulted when she was in the hospital back in January 2016. Patient is now admitted on 05/22/2016 for pneumonia and diarrhea. CT of the chest revealed her to have perihilar mass and adenopathy with postobstructive atelectasis and infiltrates. She has undergone a bronchoscopy with biopsy. Preliminary pathology report is consistent with small cell lung cancer. The CT of the abdomen and pelvis shows no evidence of metastatic disease. We have been consulted due to the possibility that we have been consulted due to the likelihood of the patient having small-cell lung cancer. We are here to discuss treatment options with the patient. PAST MEDICAL HISTORY: 1. Chronic obstructive pulmonary disease. 2. Chronic pancreatitis. 3. Diabetes. 4. Chronic pain. PAST SURGICAL HISTORY: 1. Status post cholecystectomy. 2. . 3. Benign tumor excision of the left side of her head, this was a skin lesion. 4. Colostomy. SOCIAL HISTORY: Patient currently lives with her son. She is a current smoker and smokes about a half pack of cigarettes per day. She denies alcohol or illicit drug use. FAMILY HISTORY: She does have a family member, who has had pancreatic cancer. She also has Alzheimer and hepatitis C as positive findings in her family history. No family with diabetes. No other cancer history. REVIEW OF SYSTEMS: As per HPI, noncontributory. PHYSICAL EXAMINATION: Vital Signs: Temperature 98 degrees, heart rate 83, respirations 20, blood pressure 121/72, and O2 saturation is 97% on 2 L nasal cannula. General: This is a female, sitting in the hospital bed. She is in no acute distress. Patient is unaccompanied at this time. HEENT: Head appears to be normocephalic, atraumatic. Eyes: Glasses are in place. Pupils are equal, round, and reactive. Ears, nose, throat, neck, and mouth: Oral mucosa appears to be normal. She has poor residential. Neck: Trachea is midline. Cardiovascular: S1, S2. Regular rate. Pulmonary: Patient has coarse breath sounds bilaterally. Gastrointestinal: Abdomen is soft, nondistended. Positive bowel sounds. Musculoskeletal: No obvious bony abnormalities. Extremities: Patient has no bilateral extremity edema. Neurologic: Patient is alert and oriented. No focal motor deficits are identified. LABS AND STUDIES: White blood cells 8.49m hemoglobin 13.2, hematocrit 40.8, platelets 233. Sodium 140, potassium 4.3, chloride 101, CO2 25, BUN 8, creatinine 0.8, glucose 134, magnesium 1.7, calcium 9.3. Alkaline phosphatase is 167. CEA 7.5, CA 19-[address] scan of chest, abdomen and pelvis as per the [facility]. ASSESSMENT AND PLAN: 1. Perihilar mass/adenopathy, status post bronchoscopy with biopsy. The final path is currently pending, but preliminary fasting shows to be consistent with small-cell lung cancer. Discussed briefly with the patient about pursuing treatment. She reports that she is interested. We will go ahead and proceed with a brain MRI, as well as a check of uric acid and LDH as they have not previously been evaluated. We will plan to try to start chemotherapy tomorrow. The chemotherapy plan as well as side effects will be discussed further once the patient's lab results and MRI have been completed. I guess she should probably stay with the plan to start chemotherapy tomorrow or the next day. Did discuss with the patient that she will likely need radiation therapy once she is an outpatient. 2. Pneumonia. She is currently on intravenous antibiotics as well as nebulizer treatments, continue. Also continue O2 support as needed. 3. Left-sided headache. This is a new issue that the patient has been having for about 1 week. Check brain MRI as per above. 4. Diarrhea. Clostridium difficile has been negative. Continue her current management. We want to thank you for this consult and allowing us to participate in Ms. Rivera's care while she is here at [facility]. We will continue to follow along and adjust our treatment plan per her hospital course. Dictated by FELECIA Stokes for Angela Damon MD cc: Angela Damon MD
--- NOTE | 2016-05-28 16:57 | Diag Imaging Result Document ---
PROCEDURE NAME: MRI BRAIN W W/O CONTRAST - 05/28/2016 MRI BRAIN WITHOUT AND WITH CONTRAST: FINDINGS: Images are obtained prior to and following on the scan administration. No comparison MRI brain is available. There is an approximately 1.5 x 1.5 cm area of confluent vascular structures at the posteromedial left frontal lobe near the falx. Following contrast administration, there is enhancement of vascular structures and additional ill-defined enhancement at this location. There are prominent feeding and/or draining vascular structures from this area which extend along the left superior falx. 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 There is little to no associated edema. There is no evidence of hemorrhage. There are mild chronic microvascular ischemic changes. The diffusion-weighted images show no areas of restricted diffusion (no evidence of acute infarct). There is no substantial mass effect identified. There is no midline shift. Other than the above described vascular malformation, there is no abnormal enhancement identified. IMPRESSION: 1. 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 There is little to no associated edema. There is no evidence of hemorrhage. 2. Mild chronic microvascular ischemic changes. 3. No evidence of metastatic disease to the brain.
[2016-05-28] MEDS: ZYLOPRIM PO SCH ×2 (17:53→20:53)
--- NOTE | 2016-05-28 19:09 | PROGRESS NOTE ---
DATE: 05/28/2016 PRESENT ILLNESS: The patient was admitted the hospital with a hilar mass. This has been biopsied and it showed small-cell carcinoma. Patient also has a small area of pneumonia which may be secondary to a blockage of the bronchi due to the carcinoma. MEDICATIONS: The patient is receiving cefepime. The patient told me that tomorrow she will be started on chemotherapy. PHYSICAL EXAMINATION: Vital Signs: Temperature is 98 degrees, pulse 78, respirations 14, blood pressure 127/52. General: This is an ill-appearing, middle-aged female. She is in no acute distress. Lungs: Clear to auscultation. Cardiovascular: Regular heart rate. Back: No tenderness over the spine. Neurologic: Patient is alert. She can move her extremities. There is no tremor. LABORATORY AND X-RAY: MRI of the brain shows a vascular malformation. Pathology of the lung biopsy shows a small-cell carcinoma. Creatinine 0.7. GFR is greater than 60. The patient's bronchial washings are growing yeast. CBC shows a white count of 8750, hemoglobin 13 and platelet count is 250,000. ASSESSMENT AND PLAN: 1. Patient has lung carcinoma along with a pneumonia due to tumor blockage of the airway. The patient is growing yeast from her bronchial wash. However, I doubt this is causing any infection in the patient. She has a lung cancer for which she is going to get chemotherapy. I am going to continue her antibiotic for her presumed pneumonia. 2. The patient's main comorbidity of course is the fact that she has lung cancer. She also is a diabetic and she smokes cigarettes. Patient also has pancreatitis. cc: Wayne Alves MD
[2016-05-28] MEDS: DILAUDID IV PRN (21:27)
[2016-05-29] MEDS: NORCO-10 PO PRN ×3 (00:44→21:46)
[2016-05-29] MEDS: SODIUM CHLORIDE 0.9% INJ SCH ×2 (00:45→13:44)
[2016-05-29] MEDS: PROTONIX IV SCH ×2 (00:45→13:44)
[2016-05-29] MEDS: DILAUDID IV PRN ×4 (04:39→20:11)
--- NOTE | 2016-05-29 06:41 | PROGRESS NOTE ---
DATE: 05/28/2016 SUBJECTIVE: The patient was found to have small cell lung cancer on biopsy today. She reports being upset, but ready to pursue treatment. She denies GI symptoms, stating that her pancreas is much better. She notes that her breathing is stable and she denies complaints. RECOMMENDATIONS: 1. From a GI perspective, I would continue supportive care. 2. We will follow along with you as she pursues treatment for her small cell lung cancer. cc: MD Kayy Andrews MD Heather Shah, MD
[2016-05-29 06:58] LABS: MANUAL DIFF NEEDED? NO
[2016-05-29 07:02] LABS: BASO% 0.8 % (0.0-0.8); EOS# 0.33 X1000 (0.0-0.7); EOS% 3.2 % (0.0-10.0); HEMOGLOBIN 13.1 g/dL (12.0-16.0); IMM GRAN# 0.06 X1000 (0.0-0.04); IMM GRAN% 0.6 % (0.0-0.5); LYMPH# 2.93 X1000 (1.2-3.4); MCV 84.5 FL (81-99); MONO# 0.84 X1000 (0.11-0.59); MPV 10.9 FL (7.4-10.4); NEUT% 59.4 % (42.2-75.2); PLT 253 X1000 (130-400); RBC 4.85 XMIL (4.2-5.4)
[2016-05-29 07:18] LABS: AGAP 15; BUN 7 mg/dL (8-22); CALCIUM 9.3 mg/dL (8.8-10.2); CHLORIDE 100 mmol/L (98-107); COSMO 274; POTASSIUM 4.5 mmol/L (3.5-5.1); SODIUM 138 mmol/L (136-145); TCO2 23 mmol/L (25-35)
[2016-05-29] MEDS: ALBUTEROL NEB INH SCH ×2 (07:27→19:47)
[2016-05-29] MEDS: HUMALOG SUBQ SCH ×4 (09:08→22:30)
[2016-05-29] MEDS: NICODERM PATCH TD SCH (09:11)
[2016-05-29] MEDS: MAXIPIME 1 GM/NS 1 GM/50 ML IVPB IV SCH ×2 (09:12→21:46)
[2016-05-29] MEDS: DIFLUCAN PO SCH (09:17)
[2016-05-29] MEDS: LEXAPRO PO SCH (09:17)
[2016-05-29] MEDS: CREON PO SCH (09:17)
[2016-05-29] MEDS: ZYLOPRIM PO SCH ×2 (09:17→20:39)
[2016-05-29] MEDS: CULTURELLE PO SCH ×2 (09:17→20:38)
[2016-05-29] MEDS: ELAVIL PO SCH (09:18)
[2016-05-29] MEDS: LOVENOX SUBQ SCH (09:18)
[2016-05-29] MEDS: LANTUS SUBQ SCH (09:29)
--- NOTE | 2016-05-29 09:47 | Diag Imaging Result Document ---
PROCEDURE NAME: KUB ABDOMEN - 05/29/2016 PORTABLE AP SUPINE CHEST 0905 HOURS: COMPARISON: 01/12/2016. FINDINGS: There is gas and retained fecal debris visible in [id number] distended colon. There is mild gaseous small bowel distention at the right lower quadrant/pelvis. There are surgical clips at the right upper quadrant. IMPRESSION: Nonspecific mild gaseous small bowel distention at right lower quadrant/pelvis. Correlation with clinical evaluation is recommended.
--- NOTE | 2016-05-29 13:02 | Diag Imaging Result Document ---
PROCEDURE NAME: ABDOMEN/PELVIS W/O CONTRAST - 05/29/2016 CT ABDOMEN AND PELVIS: A CT dose reduction protocol was used. COMPARISON: 05/22/2016. FINDINGS: There is some ill-defined scarring and trace effusion in the left lower lobe. The right lung base is clear. There is heterogeneous attenuation of the liver compatible with fatty change. This is stable from prior. Stable severe pancreatic atrophy with calcifications throughout the pancreas. Stable significant irregular dilation of the main pancreatic duct. There are numerous stable calcifications within the main pancreatic duct. Stable cholecystectomy changes. The common bile duct remains unchanged. Stable left renal cysts. No radiodense renal stones. Stable diverting colostomy in the left lower quadrant. No bowel obstruction or inflammation. Urinary bladder, uterus, and rectum are normal. Bony structures are intact. IMPRESSION: No change from prior. [facility]
[2016-05-29] MEDS ORDERED: EMEND 150 MG in NS 145 ML IV ONE (15:00)
[2016-05-29] MEDS ORDERED: COMPAZINE PO PRN (15:03)
[2016-05-29] MEDS ORDERED: ATIVAN IV PRN (15:04)
[2016-05-29] MEDS ORDERED: TYLENOL PO PRN (15:05)
--- NOTE | 2016-05-29 16:04 | PROGRESS NOTE ---
DATE: 05/29/2016 SUBJECTIVE: The patient complains of lower abdominal pain that radiated to her back. A CT of the abdomen and pelvis was done that did not reveal any acute finding. OBJECTIVE: Vital Signs: Temperature 97.7, blood pressure 120/63, heart rate 78, respirations 20, O2 saturations 94% on room air. General: This is a chronically ill-appearing, elderly female, lying in bed, in no acute distress. Head: Normocephalic, atraumatic. Heart: S1, S2. Normal. Regular rate and rhythm. Lungs: Clear to auscultation bilaterally. No wheezes, no rales. No rhonchi. Abdomen: Positive bowel sounds. Soft, nontender, nondistended. Extremities: No edema. No cyanosis. Neurologic: The patient is alert and oriented x3. LABS: White blood cell count 10, hemoglobin 13, hematocrit 41, platelets 253. BUN 7, creatinine 0.7, glucose 103, calcium 9.3. ASSESSMENT AND PLAN: 1. Small-cell lung cancer. Management as per the oncologist. 2. Pneumonia. Continue on IV antibiotic therapy as directed by Dr. Alves. 3. Chronic calcific pancreatitis. Stable. 4. Diabetes mellitus type 2. Continue on sliding scale insulin. 5. Situational depression. Continue on Lexapro. 6. Gastroesophageal reflux disease. Continue on Protonix. cc: Kayy Land MD
[2016-05-29] MEDS: ZOFRAN 16 MG in NS 50 ML IV SCH (16:34)
[2016-05-29] MEDS: DECADRON IV SCH (16:47)
[2016-05-29] MEDS: NS + KCL 20 MEQ 1,000 ML IV SCH (16:47)
[2016-05-29] MEDS ORDERED: MAGNESIUM SULFATE IV ONE (17:00)
[2016-05-29] MEDS ORDERED: NS IV ONE ×2 (17:00→18:00)
[2016-05-29] MEDS ORDERED: [UNRECOGNIZED DRUG - OTHER] IV ONE (18:00)
--- NOTE | 2016-05-29 18:25 | PALLIATIVE CARE CONSULTATION ---
DATE: 05/29/2016 REQUESTING PHYSICIAN: MARTIN Sanchez. REASON FOR CONSULTATION: Goals of care. HISTORY OF PRESENT ILLNESS: This is a 65-year-old, female with a past medical history of chronic pancreatitis, diabetes mellitus, obstructive sleep apnea, cirrhosis, depression, chronic pain, neuropathy, diverticulitis and COPD. She was most recently admitted on 05/22/2016 after presenting to the ED with complaints of a 10-day history of shortness of breath, intermittent fever, chest congestion with a productive cough, chest pain and headache. A CT of the chest revealed a perihilar mass and adenopathy with postobstructive atelectasis and infiltrates. She underwent a bronchoscopy with biopsy which revealed small- cell lung cancer. She is being followed by Dr. Damon and plans to start chemotherapy today with future plans of initiating radiation therapy once discharged. Currently she is lying in the hospital bed. She denies pain currently but states that she had severe abdominal pain this morning. She denies shortness of breath. She denies nausea. She states that she feels somewhat anxious. She states she feels somewhat anxious related to initiating chemotherapy today. She has no family at the bedside. Palliative Care team has been consulted to assist with goals of care. REVIEW OF SYSTEMS: Twelve point review of systems has been conducted and otherwise negative except those mentioned in the HPI. PAST MEDICAL HISTORY: See HPI. PAST SURGICAL HISTORY: 1. Cholecystectomy. 2. Colostomy. 3. . SOCIAL HISTORY: Prior to this admission she lived locally with her son. She is a current smoker. She has a past history of alcohol abuse. Past drug use has been denied. FAMILY HISTORY: Positive for pancreatic cancer, Alzheimer's Disease and hepatitis C. PHYSICAL EXAMINATION: General: This is a 65-year-old, female, who does not appear to be in any acute distress. HEENT: Atraumatic, normocephalic. Neck: Trachea is midline. Cardiovascular: Regular rate and rhythm. Pulmonary: Lung sounds are diminished but clear. Abdomen: Soft. Bowel sounds are active. There is a colostomy to the left lower quadrant. Skin: Warm and dry. Neurologic: She is awake, alert. Oriented to person, place and time. IMPRESSION: This is a 65-year-old, female with a past medical history as listed above in the HPI. The current plan is to initiate chemotherapy today. The patient states that she is somewhat anxious related to beginning chemotherapy. She states that she relieves this anxiety with prayer and reading her Bible. I have offered a project specialist consultation but she has refused. Currently she denies pain, nausea and shortness of breath. We discussed advanced directives and power of correctional guard. She does not have either document but requests to be a full code. She has requested information regarding those documents which will be given. She states that she has 6 children, 1 lives with her and is very attentive. She describes this as her support system. It appears that Ms. Rivera's palliative performance scale is 80%. The Palliative Care team will continue to follow. Thank you for this consultation. Dictated by MARTIN Quezada for Spencer Devlin MD cc: MARTIN Quezada MD [facility]
[2016-05-29] MEDS: ATIVAN PO PRN (20:12)
[2016-05-29] MEDS: NS IV SCH (20:32)
[2016-05-29] MEDS: VEPESID IV SCH (20:32)
[2016-05-30] MEDS: DILAUDID IV PRN ×5 (01:31→20:50)
[2016-05-30] MEDS: PROTONIX IV SCH ×2 (01:31→12:29)
[2016-05-30] MEDS: SODIUM CHLORIDE 0.9% INJ SCH ×2 (01:31→12:29)
[2016-05-30] MEDS: ATIVAN PO PRN ×5 (01:31→20:50)
[2016-05-30] MEDS: NORCO-10 PO PRN (03:23)
[2016-05-30 07:14] LABS: BASO% 0.4 % (0.0-0.8); EOS# 0.15 X1000 (0.0-0.7); EOS% 2.8 % (0.0-10.0); HEMATOCRIT 37.8 % (37.0-47.0); IMM GRAN# 0.03 X1000 (0.0-0.04); IMM GRAN% 0.6 % (0.0-0.5); LYMPH# 0.54 X1000 (1.2-3.4); LYMPH% 10.2 % (20.5-51.1); MANUAL DIFF NEEDED? NO; MCHC 31.7 g/dL (33-37); MCV 85.1 FL (81-99); MONO% 1.9 % (1.7-9.3); MPV 11.6 FL (7.4-10.4); NEUT% 84.1 % (42.2-75.2); PLT 218 X1000 (130-400); RBC 4.44 XMIL (4.2-5.4)
[2016-05-30] MEDS: ALBUTEROL NEB INH SCH ×2 (07:30→20:00)
[2016-05-30 07:35] LABS: AGAP 15; BUN 8 mg/dL (8-22); CALCIUM 8.9 mg/dL (8.8-10.2); CHLORIDE 104 mmol/L (98-107); COSMO 276; POTASSIUM 4.4 mmol/L (3.5-5.1); SODIUM 137 mmol/L (136-145); TCO2 18 mmol/L (25-35)
[2016-05-30] MEDS: CULTURELLE PO SCH ×2 (09:19→20:31)
[2016-05-30] MEDS: CREON PO SCH (09:19)
[2016-05-30] MEDS: NICODERM PATCH TD SCH (09:19)
[2016-05-30] MEDS: ZYLOPRIM PO SCH ×2 (09:20→20:31)
[2016-05-30] MEDS: ELAVIL PO SCH (09:20)
[2016-05-30] MEDS: MAXIPIME 1 GM/NS 1 GM/50 ML IVPB IV SCH ×2 (09:20→23:06)
[2016-05-30] MEDS: LOVENOX SUBQ SCH (09:20)
[2016-05-30] MEDS: LANTUS SUBQ SCH (09:20)
[2016-05-30] MEDS: DIFLUCAN PO SCH (09:20)
[2016-05-30] MEDS: LEXAPRO PO SCH (09:20)
[2016-05-30] MEDS: HUMALOG SUBQ SCH ×3 (12:07→20:50)
--- NOTE | 2016-05-30 12:28 | PROGRESS NOTE ---
DATE: 05/30/2016 SUBJECTIVE: The patient complains of abdominal pain. She denies having any nausea. She is having adequate output from her colostomy. No acute events noted overnight. OBJECTIVE: Vital Signs: Temperature 97 degrees, blood pressure 119/65, heart rate 85, respirations 19, O2 saturations 93% on 2 L nasal cannula. General: This is a chronically ill- appearing, elderly female, lying in bed in no acute distress. Head: Normocephalic, atraumatic. Heart: S1, S2. Normal. Regular rate and rhythm. Lungs: Clear to auscultation bilaterally. Abdomen: Positive bowel sounds. Soft, nontender, nondistended. Extremities: No edema. No cyanosis. No calf tenderness. Neurologic: The patient is alert and oriented x3. LABS: White blood cell count 5.2, hemoglobin 12, hematocrit 37, platelets 218. Sodium 137, potassium 4.4, chloride 104, CO2 18, BUN 8, creatinine 0.7, glucose 168. ASSESSMENT AND PLAN: 1. Small cell lung carcinoma. The patient received chemotherapy yesterday. Further management as per the oncologist. 2. Postobstructive pneumonia. Continue on the current intravenous antibiotic regimen as directed by Dr. Alves. 3. Abdominal pain. Continue with as-needed pain medication and antiemetics. 4. Diabetes mellitus type 2. Continue on sliding scale insulin. 5. Situational depression. Continue on Lexapro. 6. Gastroesophageal reflux disease. Continue on Protonix. cc: Kayy Land MD
[2016-05-30] MEDS: NEURONTIN PO PRN (14:47)
[2016-05-30] MEDS: NS + KCL 20 MEQ 1,000 ML IV SCH ×2 (14:53→15:02)
--- NOTE | 2016-05-30 16:12 | PALLIATIVE CARE PROGRESS NOTE ---
DATE: 05/30/2016 SUBJECTIVE: Ms. Rivera is sitting up in the hospital bed completing a crossword puzzle. She has no acute complaints at this time. OBJECTIVE: General: This is a chronically ill-appearing, female, who does not appear to be in any acute distress. HEENT: Atraumatic, normocephalic. Neck: Trachea is midline. Cardiovascular: Regular rate and rhythm. Pulmonary: Lung sounds are diminished and clear. Abdomen: Soft. Bowel sounds are active. Extremities: Pulses are palpable. Neuro: Awake, alert, oriented to person, place and time. ASSESSMENT AND PLAN: Currently Ms. Rivera does not have any acute complaints. She states she completed her chemotherapy yesterday without any side effects. The palliative care team will continue to follow. Dictated by MARTIN Quezada for Spencer Devlin MD cc: MARTIN Quezada MD
[2016-05-30] MEDS: DECADRON IV SCH (16:23)
[2016-05-30] MEDS: ZOFRAN 16 MG in NS 50 ML IV SCH (16:26)
--- NOTE | 2016-05-30 16:37 | PROGRESS NOTE ---
DATE: 05/30/2016 PRESENT ILLNESS: The patient has biopsy-proven small-cell carcinoma of the lung. She also has a pneumonia secondary to obstruction of the bronchus due to the carcinoma. MEDICATIONS: The patient is receiving cefepime as a single agent. PHYSICAL EXAMINATION: Vital Signs: Temperature is 97.7 degrees, pulse 90, respirations 18, blood pressure 120/70. Generally: This is an ill-appearing, middle-aged female. She is in no acute distress. Lungs: Clear to auscultation. Cardiovascular: Regular heart rate. Abdomen: Soft and nontender. LAB AND X-RAY: The bronchial washings grew yeast. The CT scan the abdomen and pelvis showed no carcinoma or abscess. The patient's CBC shows a white count of 5290, hemoglobin 12, platelet count 218,000, creatinine is 0.7. GFR is greater than 60. ASSESSMENT AND PLAN: Patient has postobstructive pneumonia for which she is receiving cefepime. This is day 8 of cefepime. My plan is to continue it and also repeat the patient's chest x-ray to see if the pneumonia has cleared. COMORBIDITIES: The patient's main comorbidity is lung cancer. She also has diabetes mellitus, cigarette smoking, and pancreatitis. cc: Wayne Alves MD
[2016-05-30] MEDS: VEPESID IV SCH (16:45)
[2016-05-30] MEDS: NS IV SCH (16:45)
[2016-05-31] MEDS: PROTONIX IV SCH ×3 (00:50→23:31)
[2016-05-31] MEDS: NEURONTIN PO PRN (01:24)
[2016-05-31] MEDS: HUMALOG SUBQ SCH ×4 (06:32→20:29)
[2016-05-31 07:21] LABS: AGAP 15; BUN 14 mg/dL (8-22); CALCIUM 9.1 mg/dL (8.8-10.2); CHLORIDE 100 mmol/L (98-107); COSMO 277; POTASSIUM 4.6 mmol/L (3.5-5.1); SODIUM 136 mmol/L (136-145); TCO2 21 mmol/L (25-35)
[2016-05-31] MEDS: ALBUTEROL NEB INH SCH ×2 (08:09→19:27)
[2016-05-31] MEDS: ELAVIL PO SCH (09:52)
[2016-05-31] MEDS: ZYLOPRIM PO SCH ×2 (09:52→20:18)
[2016-05-31] MEDS: LEXAPRO PO SCH (09:52)
[2016-05-31] MEDS: CULTURELLE PO SCH ×2 (09:52→20:18)
[2016-05-31] MEDS: CREON PO SCH (09:52)
[2016-05-31] MEDS: NICODERM PATCH TD SCH (09:53)
[2016-05-31] MEDS: LANTUS SUBQ SCH (09:53)
[2016-05-31] MEDS: LOVENOX SUBQ SCH (09:53)
[2016-05-31] MEDS: DIFLUCAN PO SCH (09:53)
[2016-05-31] MEDS: MAXIPIME 1 GM/NS 1 GM/50 ML IVPB IV SCH ×2 (09:53→22:50)
[2016-05-31] MEDS: DILAUDID IV PRN ×3 (10:03→20:19)
[2016-05-31] MEDS: SODIUM CHLORIDE 0.9% INJ SCH ×2 (11:28→23:31)
[2016-05-31 12:34] LABS: AGAP 15; ALBUMIN 3.3 g/dL (3.5-5.0); ALKALINE PHOSPHATASE 190 U/L (32-104); BUN 17 mg/dL (8-22); CALCIUM 9.1 mg/dL (8.8-10.2); CHLORIDE 97 mmol/L (98-107); COSMO 278; GOT 41 U/L (10-30); GPT 47 U/L (10-36); SODIUM 133 mmol/L (136-145); TCO2 21 mmol/L (25-35); TOTAL PROTEIN 6.8 g/dL (6.3-8.3)
[2016-05-31] MEDS: ZOFRAN 16 MG in NS 50 ML IV SCH (16:41)
[2016-05-31] MEDS: DECADRON IV SCH (16:45)
[2016-05-31] MEDS: NS + KCL 20 MEQ 1,000 ML IV SCH (16:46)
[2016-05-31] MEDS: NS IV SCH (18:25)
[2016-05-31] MEDS: VEPESID IV SCH (18:25)
[2016-05-31] MEDS: NORCO-10 PO PRN (18:36)
--- NOTE | 2016-05-31 18:58 | PROGRESS NOTE ---
DATE: 05/31/2016 SUBJECTIVE: The patient is sitting up eating breakfast. She does complain of intermittent abdominal pain but, otherwise, has no other complaints. OBJECTIVE: Vital Signs: Temperature 97.5 degrees, blood pressure 152/72, heart rate 100, respirations 16, O2 saturation 95 on 2 L nasal cannula. General: This is a chronically ill- appearing, elderly female, sitting up in bed, in no acute distress. Head: Normocephalic, atraumatic. Heart: S1, S2. Normal. Tachycardic. Lungs: Clear to auscultation bilaterally. No wheezing. No rales. No rhonchi. Abdomen: Positive bowel sounds. Soft, nontender, nondistended. Extremities: No edema. No cyanosis. No calf tenderness. Neurologic: The patient is alert and oriented x3. LABORATORY DATA: Sodium 133, potassium 5, chloride 97, CO2 of 21. BUN 17, creatinine 0.9, glucose 282. ASSESSMENT AND PLAN: 1. Small cell lung carcinoma, status post chemo. Management as per the oncologist. 2. Abdominal pain. Continue on p.r.n. pain medication. 3. Post obstructive pneumonia. Continue on IV antibiotic therapy. 4. Situational depression. Continue on Lexapro. 5. Diabetes mellitus, type 2. Continue on sliding scale insulin. 6. Gastroesophageal reflux disease. Continue on Protonix. Will consult physical therapy. cc: Kayy Land MD
[2016-05-31] MEDS: ATIVAN PO PRN (22:50)
[2016-06-01] MEDS: ALBUTEROL NEB INH SCH ×3 (00:22→19:27)
[2016-06-01] MEDS: DILAUDID IV PRN ×6 (00:28→20:29)
[2016-06-01] MEDS: HUMALOG SUBQ SCH ×4 (06:34→20:25)
[2016-06-01] MEDS ORDERED: INSULIN PEN NEEDLES ONE (06:41)
--- NOTE | 2016-06-01 07:07 | Diag Imaging Result Document ---
PROCEDURE NAME: CHEST-PORTABLE - 06/01/2016 PORTABLE CHEST: COMPARISON: 05/22/2016. FINDINGS: The lungs are well expanded. The heart is not enlarged. Mild vascular distention on the current exam. A left perihilar mass/density has an appearance similar to the prior exam. No pleural effusion is identified. IMPRESSION: Development of pulmonary edema.
[2016-06-01 07:26] LABS: AGAP 15; BUN 15 mg/dL (8-22); CALCIUM 9.2 mg/dL (8.8-10.2); CHLORIDE 99 mmol/L (98-107); COSMO 278; POTASSIUM 5.8 mmol/L (3.5-5.1); SODIUM 136 mmol/L (136-145); TCO2 22 mmol/L (25-35)
[2016-06-01] MEDS ORDERED: LASIX IV ONE (07:37)
[2016-06-01] MEDS ORDERED: CALCIUM GLUCONATE 1 GM in NS 50 ML IV ONE (07:38)
[2016-06-01] MEDS ORDERED: SODIUM BICARBONATE 8.4% IV ONE (07:38)
[2016-06-01] MEDS ORDERED: HUMULIN R IV ONE (07:38)
[2016-06-01] MEDS ORDERED: D50W SYRINGE IV ONE (07:39)
[2016-06-01 09:08] LABS: EOS# 0.04 X1000 (0.0-0.7); EOS% 0.4 % (0.0-10.0); HEMATOCRIT 38.9 % (37.0-47.0); HEMOGLOBIN 12.5 g/dL (12.0-16.0); IMM GRAN# 0.03 X1000 (0.0-0.04); IMM GRAN% 0.3 % (0.0-0.5); LYMPH# 0.59 X1000 (1.2-3.4); LYMPH% 5.3 % (20.5-51.1); MANUAL DIFF NEEDED? NO; MCH 27.2 PG (27-31); MCHC 32.1 g/dL (33-37); MCV 84.7 FL (81-99); MONO# 0.18 X1000 (0.11-0.59); MONO% 1.6 % (1.7-9.3); MPV 10.6 FL (7.4-10.4); NEUT% 92.4 % (42.2-75.2); PLT 261 X1000 (130-400); RBC 4.59 XMIL (4.2-5.4)
[2016-06-01] MEDS: CREON PO SCH (10:00)
[2016-06-01] MEDS: LEXAPRO PO SCH (10:00)
[2016-06-01] MEDS: ELAVIL PO SCH (10:00)
[2016-06-01] MEDS: CULTURELLE PO SCH ×2 (10:00→20:25)
[2016-06-01] MEDS: NICODERM PATCH TD SCH (10:00)
[2016-06-01] MEDS: DIFLUCAN PO SCH (10:00)
[2016-06-01] MEDS: ZYLOPRIM PO SCH ×2 (10:00→20:25)
[2016-06-01] MEDS: LOVENOX SUBQ SCH (10:00)
[2016-06-01] MEDS: LANTUS SUBQ SCH (10:00)
[2016-06-01] MEDS: NEURONTIN PO PRN (10:10)
[2016-06-01] MEDS: MAXIPIME 1 GM/NS 1 GM/50 ML IVPB IV SCH (10:45)
[2016-06-01] MEDS: PROTONIX IV SCH (12:14)
--- NOTE | 2016-06-01 15:03 | PROGRESS NOTE ---
DATE: 06/01/2016 SUBJECTIVE: The patient was noted to be slightly confused this morning. She complains of abdominal pain but otherwise has no other complaints. OBJECTIVE: Vital Signs: Temperature 97.8 degrees, blood pressure 146/56, heart rate 78, respirations 20, O2 saturations 98% on 2 L nasal cannula. General: This is a elderly female sitting up in bed in no acute distress. Head: Normocephalic, atraumatic. Heart: S1, S2. Normal. Regular rate and rhythm. Lungs: Coarse breath sounds bilaterally. No crackles. No rales. Abdomen: Positive bowel sounds. Soft, nontender, nondistended. Extremities: No edema. No cyanosis. No calf tenderness. Neurologic: The patient is alert and oriented x3. LABS: White blood cell count 11, hemoglobin 12, hematocrit 38, platelets 261,000. Sodium 136, potassium 5.8, chloride 99, CO2 20, BUN 15, creatinine 0.8, glucose 189, uric acid 1.7. ASSESSMENT AND PLAN: 1. Small cell lung carcinoma status post chemotherapy. Management as per the oncologist. 2. Hyperkalemia. The patient's uric acid level was low. Will treat the patient's high potassium and repeat the potassium level later this afternoon. 3. Postobstructive pneumonia. Continue on IV antibiotic therapy. 4. Situational depression. Continue on Lexapro. 5. Diabetes mellitus type 2. Continue on sliding scale insulin. 6. Gastroesophageal reflux disease. Continue on Protonix. 7. Chronic abdominal pain. Continue on p.r.n. pain medication. 8. Tobacco dependence. Continue on the NicoDerm patch. 9. Deep vein thrombosis prophylaxis. Continue on Lovenox. cc: Kayy Land MD
[2016-06-02] MEDS: MAXIPIME 1 GM/NS 1 GM/50 ML IVPB IV SCH ×3 (00:32→22:30)
[2016-06-02] MEDS: DILAUDID IV PRN ×5 (00:35→19:49)
[2016-06-02] MEDS: SODIUM CHLORIDE 0.9% INJ SCH ×2 (00:35→12:43)
[2016-06-02] MEDS: PROTONIX IV SCH ×2 (00:36→12:43)
[2016-06-02] MEDS: ALBUTEROL NEB INH SCH ×3 (03:20→19:49)
[2016-06-02 06:38] LABS: MANUAL DIFF NEEDED? NO
[2016-06-02] MEDS: HUMALOG SUBQ SCH ×5 (06:43→22:30)
[2016-06-02 07:25] LABS: BASO% 0.1 % (0.0-0.8); EOS# 0.08 X1000 (0.0-0.7); EOS% 0.6 % (0.0-10.0); HEMATOCRIT 39.2 % (37.0-47.0); HEMOGLOBIN 12.7 g/dL (12.0-16.0); IMM GRAN# 0.02 X1000 (0.0-0.04); IMM GRAN% 0.2 % (0.0-0.5); LYMPH# 2.15 X1000 (1.2-3.4); LYMPH% 17.1 % (20.5-51.1); MCH 27.3 PG (27-31); MCHC 32.4 g/dL (33-37); MCV 84.3 FL (81-99); MONO# 0.12 X1000 (0.11-0.59); MPV 11.4 FL (7.4-10.4); PLT 265 X1000 (130-400); RBC 4.65 XMIL (4.2-5.4)
--- NOTE | 2016-06-02 07:41 | Diag Imaging Result Document ---
PROCEDURE NAME: CHEST-PORTABLE - 06/02/2016 AP PORTABLE CHEST AT 0500 HOURS: FINDINGS: There is interstitial opacity in both upper lobes and apparent mass in the left hilum obliterating the AP window. Compared to 06/01/2016 there has been no appreciable change. IMPRESSION: Postobstructive pneumonitis and/or lymphangitic spread of carcinoma in the upper lung zones. Potentially stable since 06/01/2016.
[2016-06-02 07:57] LABS: CALCIUM 9.3 mg/dL (8.8-10.2); POTASSIUM 4.4 mmol/L (3.5-5.1)
[2016-06-02] MEDS: LOVENOX SUBQ SCH (08:27)
[2016-06-02] MEDS: CREON PO SCH (08:27)
[2016-06-02] MEDS: DIFLUCAN PO SCH (08:27)
[2016-06-02] MEDS: ZYLOPRIM PO SCH ×2 (08:28→22:30)
[2016-06-02] MEDS: NICODERM PATCH TD SCH (08:28)
[2016-06-02] MEDS: LEXAPRO PO SCH (08:28)
[2016-06-02] MEDS: ELAVIL PO SCH (08:28)
[2016-06-02] MEDS: CULTURELLE PO SCH ×2 (08:29→22:30)
[2016-06-02] MEDS: LANTUS SUBQ SCH (08:30)
[2016-06-02 16:01] LABS: INR 0.9; PROTIME 9.4 Seconds (9.2-11.7)
--- NOTE | 2016-06-02 16:58 | PROGRESS NOTE ---
DATE: 06/02/2016 PRESENT ILLNESS: The patient has biopsy-proven carcinoma of the lung. In addition, has bilateral upper lobe opacities which could be due to pneumonia and could be further caused by obstruction to the bronchi from the cancer. The patient's white count is increasing. MEDICATIONS: The patient is receiving cefepime as a single agent. PHYSICAL EXAMINATION: Vital Signs: Temperature is 97.3 degrees, pulse 114, respirations 18, blood pressure 120/57. General: This is an ill-appearing, middle-aged female. She is in no acute distress. Cardiovascular: The heart rate was regular. Peripheral pulses are palpable. Abdomen: Soft and nontender. Lungs: There were bilateral rhonchi. LAB AND X-RAY: Chest x-ray showed bilateral upper lobe opacities and a left hilar mass. [place] [address], hemoglobin 12.7, and platelet count 265,000. Bronchial washings grew yeast. ASSESSMENT AND PLAN: Patient has pneumonia. Possibly some of it is due to post obstruction from the malignancy. This is day 11 of cefepime. With white count going up, I have added coverage for MRSA and specifically I started the patient on p.o. Septra for this. I plan to continue treating with cefepime. COMORBIDITIES: The patient's main comorbidity is lung cancer with possible obstruction to the bronchi, diabetes mellitus, cigarette smoking, and pancreatitis. cc: Wayne Alves MD
--- NOTE | 2016-06-02 17:29 | PROGRESS NOTE ---
DATE: 06/02/2016 SUBJECTIVE: Patient reports feeling a little bit short of breath, but able to walk around. She denies any other complaints. OBJECTIVE: Vital Signs: Temperature 97.3 degrees, heart rate 114, respiratory rate 18, blood pressure 120/57, O2 saturation 97% on 2 L nasal cannula. General: This is an elderly female lying in bed, in no acute distress. HEENT: Head is normocephalic, atraumatic. Anicteric sclerae and pale conjunctivae. Mucous membranes moist. Neck: Supple. No JVD noted. No carotid bruits. No lymphadenopathy. No thyromegaly. Cardiovascular: S1, S2 heard. No murmurs, gallops, or rubs. Regular rate and rhythm. Respiratory: Coarse breath sounds are present in both pulmonary bell. No crackles, no rales. Patient is not using any accessory muscles or having work of breathing. Abdomen: Soft, nontender to palpation. Bowel sounds present. No organomegaly. Extremities: No clubbing, cyanosis, or edema. Peripheral pulses present in both legs. Neurological: Patient is alert and oriented x3. Moves 4 extremities. LABORATORY DATA: White cell count 12.58, hemoglobin 12.7, hematocrit 39.2, platelets 265,000. BMP unremarkable. ASSESSMENT AND PLAN: 1. Small cell lung carcinoma status post chemotherapy. As per Hematology/Oncology, patient is good to go home and they will have an appointment either tomorrow or within this week after she is discharged. 2. Hyperkalemia. Resolved. 3. Postobstructive pneumonia. We will continue with IV antibiotics. At this time, according to Dr. Alves, the patient can be discharged on IV antibiotics. We will get a PICC line and we will consult an antibiotic agency to administer this medication. 4. Situational depression. The patient is on Keppra. 5. Diabetes mellitus type 2. We will continue with sliding scale insulin. 6. Gastroesophageal reflux disease. We will continue Protonix. 7. Chronic abdominal pain. We will continue with p.r.n. pain medication. 8. Tobacco dependence. Patient is on NicoDerm patch. cc: Rbuen Peterson MD
[2016-06-02] MEDS: SEPTRA DS PO SCH ×2 (21:20→22:30)
--- NOTE | 2016-06-02 21:27 | PALLIATIVE CARE PROGRESS NOTE ---
DATE: 06/02/2016 SUBJECTIVE: Ms. Rivera is awake and alert. It was noted that she has periods of confusion over this weekend, but does not appear confused at this time. She complains of pain to her entire body. She also complains of episodes of nausea. OBJECTIVE: General: This is a 66-year-old female who does not appear to be in any acute distress. HEENT: Atraumatic, normocephalic. Neck: Trachea is midline. Cardiovascular: Regular rate and rhythm. Pulmonary: Lung sounds are diminished and clear. Abdomen: Soft, bowel sounds are active. Extremities: Pulses are palpable. Neurologic: She is alert and oriented to person, place and time. ASSESSMENT AND PLAN: As mentioned, Ms. Rivera states that she has pain to her entire body. She is receiving 1 mg of Dilaudid during my visit. She states that this medication has been effective in the past. The Palliative Care Team will continue to follow to assess the effectiveness of that medication. She also has episodes of nausea, but she states the medicine that she has received is very effective. She states that she is ambulatory and has been walking in the room as well as the orr. She has no other complaints or concerns. The palliative care team will continue to follow. Dictated by MARTIN Quezada for Spencer Devlin MD cc: MARTIN Quezada MD
[2016-06-03] MEDS: DILAUDID IV PRN ×3 (00:27→09:03)
[2016-06-03] MEDS: PROTONIX IV SCH ×2 (00:27→11:56)
[2016-06-03] MEDS: SODIUM CHLORIDE 0.9% INJ SCH (00:27)
--- NOTE | 2016-06-03 04:33 | PROGRESS NOTE ---
DATE: 06/02/2016 ADDENDUM: Our plan now on the patient is to have a PICC placed and then send her home on antibiotics consisting of cefepime 1 g IV every 12 hours and Septra 1 double-strength tablet every 12 hours. I consulted for a PICC and also have consulted [facility] to supply the IV antibiotic and I electronically transmitted the patient's prescription for Septra to her pharmacy. I plan to see the patient back in 2 weeks at which time I will examine her and also get a repeat chest x- ray. cc: Wayne Alves MD
[2016-06-03] MEDS: HUMALOG SUBQ SCH ×2 (07:01→11:39)
[2016-06-03] MEDS: ALBUTEROL NEB INH SCH (07:30)
[2016-06-03 07:50] LABS: AGAP 16; BUN 16 mg/dL (8-22); CALCIUM 9.1 mg/dL (8.8-10.2); CHLORIDE 95 mmol/L (98-107); COSMO 274; POTASSIUM 4.2 mmol/L (3.5-5.1); SODIUM 136 mmol/L (136-145); TCO2 25 mmol/L (25-35)
[2016-06-03] MEDS: MAXIPIME 1 GM/NS 1 GM/50 ML IVPB IV SCH (09:01)
[2016-06-03] MEDS: SEPTRA DS PO SCH ×2 (09:02→09:20)
[2016-06-03] MEDS: LOVENOX SUBQ SCH (09:02)
[2016-06-03] MEDS: ZYLOPRIM PO SCH ×2 (09:02→09:20)
[2016-06-03] MEDS: LEXAPRO PO SCH ×2 (09:02→09:21)
[2016-06-03] MEDS: ELAVIL PO SCH ×2 (09:02→09:21)
[2016-06-03] MEDS: CREON PO SCH ×2 (09:02→09:20)
[2016-06-03] MEDS: CULTURELLE PO SCH ×2 (09:03→09:20)
[2016-06-03] MEDS: NICODERM PATCH TD SCH (09:03)
[2016-06-03] MEDS: DIFLUCAN PO SCH ×2 (09:03→09:21)
[2016-06-03] MEDS: LANTUS SUBQ SCH (09:03)
[2016-06-03] MEDS ORDERED: NS 250 ML ONE (09:10)
[2016-06-03 15:08] VITALS: BP 130/70
--- NOTE | 2016-06-03 16:34 | PROGRESS NOTE ---
DATE: 06/03/2016 PRESENT ILLNESS: The patient is being treated for upper lobe opacities which could be a pneumonia caused by bronchial obstruction from the tumor. MEDICATIONS: The patient is receiving cefepime and yesterday I started her on Septra. This is day 12 of cefepime and day 1 of Septra. PHYSICAL EXAMINATION: Vital Signs: Temperature is 97.3 degrees, pulse 101, respirations 18, pressure 130/70. General: This is an ill-appearing, middle-aged female. She is in no acute distress. Lungs: Clear to auscultation. Cardiovascular: Regular heart rate. Abdomen: Soft and nontender. Neurologic: The patient is awake. She can move her extremities. There is no tremor. LAB AND X-RAY: There is no CBC today and no new x-ray. The patient's creatinine is 0.8. The GFR is greater than 60. Bronchial washings grew a yeast. ASSESSMENT AND PLAN: This is day 12 of cefepime and day 1 of Septra. I plan to continue the 2 antibiotics. [facility] was consulted to supply the patient's home antibiotics. I will be seeing her in my office in 2 weeks at which time I will examine her and also repeat the chest x-ray to see if there is any improvement. COMORBIDITIES: The patient's comorbidities include lung cancer, with possible bronchial obstruction, diabetes mellitus, cigarette smoking, and pancreatitis. cc: Wayne Alves MD
--- NOTE | 2016-06-03 16:42 | PROGRESS NOTE ---
DATE: 06/03/2016 PRESENT ILLNESS: The patient has bilateral upper lobe pneumonias, possibly due to obstruction from her lung cancer. MEDICATIONS: She is receiving cefepime and Septra. PHYSICAL EXAMINATION: Vital Signs: Temperature is 97.3 degrees, pulse 101, respiration is 18, blood pressure 130/70. Generally: This is an ill-appearing, middle-aged female. She is in no acute distress. Lungs: Clear to auscultation. Cardiovascular: Regular heart rate. Abdomen: Soft and nontender. There is a colostomy in place. LAB AND X-RAY: The patient's creatinine is 0.8. The GFR is greater than 60. There was no CBC for today, no culture for today, and no radiographic study for today. ASSESSMENT AND PLAN: Patient has pneumonia, possibly post obstruction from the lung cancer. The plan is to continue treatment with his antibiotics, and I will be seeing the patient in my office in 2 weeks, at which time I will examine her and repeat her chest x-ray. COMORBIDITIES: The patient's main comorbidity is that she has lung cancer. She has lung cancer causing obstruction to her lungs and thus creating the possibility of pneumonia. She also is a diabetic. She smokes cigarettes and she has pancreatitis. cc: Wayne Alves MD
--- NOTE | 2016-06-04 07:03 | DISCHARGE SUMMARY ---
ADMISSION DATE: 05/22/2016 DISCHARGE DATE: 06/03/2016 CONSULTATION: 1. Blanca Mayberry with GI. 2. Dr. Spencer Devlin with Pulmonology. 3. Dr. Damon with Hematology/Oncology. 4. Dr. Wayne Alves with Infectious Disease. 5. Niya De Los Santos with Palliative Care. PERTINENT PROCEDURES: 1. Chest, abdomen pelvis CT showed a left perihilar mass adenopathy with postobstructive atelectasis and infiltrate, stable CT of the abdomen and pelvis. 2. Bronchoscopy with needle aspiration and endobronchial biopsy and washings performed by Dr. Devlin. 3. Abdomen and pelvis CT showed no change from prior. 4. Abdominal x-ray showed nonspecific mild gaseous small bowel distention of the right lower quadrant and pelvis. 5. 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 There is little to no associated edema. No evidence of hemorrhage, mild chronic microvascular ischemic changes. No evidence of metastatic disease to the brain. DISCHARGE DIAGNOSES: 1. Small lung cell carcinoma status post chemotherapy followed by Hematology/ Oncology. Follow up in 1 week. 2. Hypokalemia resolved. 3. Postobstructive pneumonia. Patient will be discharged home after PICC line to continue with IV antibiotics with Infectious Disease. 4. Situational depression. Continue on Keppra. 5. Diabetes mellitus type 2. Continue home medications. 6. Gastroesophageal reflux disease. Continue proton pump inhibitors. 7. Chronic abdominal pain. Continue with p.r.n. medications. 8. Tobacco dependence. The patient has been educated daily against smoking cessation as well as the means to quit. HISTORY OF PRESENT ILLNESS: Briefly, Ms. Rivera is a 65-year-old, female with a past medical history of chronic pain, neuropathy, diverticulitis, COPD, chronic pancreatitis, diabetes mellitus, obstructive sleep apnea, cirrhosis and depression who presented to the ED with complaints of a 10-day history of shortness of breath, intermittent fever, chest congestion, productive cough, chest pain, and headache. A CT of the chest revealed a perihilar mass adenopathy with postobstructive atelectasis and infiltrate. She underwent a bronchoscopy with biopsy that revealed small cell lung cancer. She is being followed by Dr. Damon who plans to start chemotherapy with future plans of radiation once discharged. Palliative care was consulted and followed patient throughout her admission. For the patient's postobstructive pneumonia, she will receive a PICC line today and continue with IV antibiotics at home. Followed by Dr. Wayne Alves. She will also continue to follow with hematology/oncology. She was initiated on chemotherapy here in the hospital. She will follow up with them after discharge to continue her chemotherapy and initiate radiation treatments. The patient does report feeling better, short of breath at times but she is still able to get up and walk around. She does complain of all-over body pain. VITAL SIGNS AT TIME OF HER DISCHARGE: Temperature was 99.1 degrees, heart rate 98, respirations 18, blood pressure 110/63, O2 saturation is 100%. DISCHARGE DIET: Regular. DISCHARGE MEDICATIONS: 1. Albuterol nebulizer 3 mL inhaled RT 4 times a day. 2. Zyloprim 300 mg p.o. b.i.d. 3. Amitriptyline 25 mg p.o. daily. 4. Lexapro 20 mg p.o. q.a.m. 5. Neurontin 100 mg p.o. q.8 hours p.r.n. 6. Lantus 28 units subcutaneous q.a.m. 7. Culturelle 1 each p.o. b.i.d. 8. Creon 6000 units p.o. daily. 9. Prilosec 40 mg p.o. q.a.m. 10. Septra 800 and 400 1 each p.o. q.12 hours for 30 tablets. 11. Ultram 50 mg p.o. q.6 hours p.r.n. Take 1-2 tabs every 6 hours as needed for pain. FOLLOWUP: The patient is being discharged back home with a PICC line for IV antibiotics. She will be followed by [facility], as well as home health. She will need to continue to follow up with Dr. Damon for her chemo treatments as well as radiation treatment. She can also follow up with Dr. Wayne Alves in 2 weeks, as well as her primary care physician, Dr. Rivera in 7-10 days. Patient can return to the ED for any worsening of symptoms. DISCHARGE TIME: 38 minutes. Dictated by MARTIN Sanchez for Ruben Peterson MD cc: MD Garima Saucedor, MD MTDD
--- NOTE | 2016-06-05 16:40 | PROVIDER DOCUMENTATION ---
This chart was entered by Whit Travis Scribe, acting as scribe for Anibal Mcneil MD. HPI-General Adult - General Chief Complaint: General Adult Stated Complaint: SOB Time Seen by Provider: 05/21/16 23:36 Source: patient Allergies/Adverse Reactions: Patient Allergies Allergy/AdvReac Type Severity Reaction Status Date / Time morphine Allergy Severe ITCHING Verified 05/21/16 22:25 Penicillins Allergy Severe ITCHING Verified 05/21/16 22:25 Home Medications: Home Medication List Medication Instructions Recorded Confirmed Last Taken Type Omeprazole [Prilosec] 40 mg PO QAM 11/05/11 05/21/16 05/21/16 History Escitalopram [Lexapro] 20 mg PO QAM 12/19/11 05/21/16 05/21/16 History Gabapentin [Neurontin] 100 mg PO Q8HR PRN 07/30/13 05/21/16 05/21/16 History Insulin Glargine [Lantus] 28 unit SUBQ QAM 07/18/14 05/21/16 05/21/16 History Tramadol [Ultram] 50 mg PO Q6H PRN PRN #30 tablet 07/18/14 05/21/16 05/21/16 Rx Lipase/Protease/Amylase [Creon] 6,000 units PO DAILY 05/02/15 05/21/16 05/21/16 History Amitriptyline HCl 25 mg PO DAILY 07/25/15 05/21/16 05/21/16 History Albuterol 2.5MG/Ipratrop 0.5MG 3 ml INH [id number] #30 neb 10/06/15 05/21/16 Rx [Duoneb (A & A)] Sulfamethoxazole/Trimethoprim 1 each PO Q12H #30 tablet 06/02/16 Unknown Rx [Septra 80-400 Tablet] Allopurinol [Zyloprim] 300 mg PO BID #60 tablet 06/03/16 Unknown Rx Lactobacillus Rhamnosus GG 1 each PO BID capsule 06/03/16 Unknown Rx [Culturelle] - History of Present Illness -Gen Adult Nature of Presenting Problems: PT IS A 65YOF PRESENTING TO THE ED C/O ABD PAIN/COUGH. PT STATES HER PANCREASE IS ACTING UP AND SHE HURTS IN HER LUQ ESPECIALLY WHEN SHE COUGHS. PT HAS HAD DIFFERENT EXAMS SHOWING THAT SHE MAY OR MAY NOT HAVE PANCREATIC CA. PT HAS CHRONIC PANCREATITIS AND LIVER DAMAGE ACCORDING TO PT AND SHE STATES GI DR HAS HAD MISUNDERSTANDINGS WITH GI DR. PT HAS HAD STENT PLACEMENTS AND SHE STATES SHES "TIRED OF BEING IN PAIN AND SOB". PT DENIES SHE HER FOR PAIN CONTROL. PT STATES THAT "SHE WAS GIVEN A COLOSTOMY BAG TO STOP HER PANCREATITIS", PT EXTREMELY AGGRAVATED BY THE MEDICAL ISSUES. Location of Pain/Injury: reports: abdomen Pain Radiation: reports: no radiation Quality of Pain: reports: aching, cramping Severity: reports: mild, moderate Onset/Duration: reports: gradual, 3 days ago Timing: reports: still present Context/Activities at Onset: reports: light activity Modifying Factors: improves with: nothing Associated Symptoms: reports: cough, fatigue, fever/chills, nausea, shortness of breath. denies: vomiting Similar Symptoms Previously?: Yes Recently seen or treated by another doctor?: Yes Review of Systems - Adult - REVIEW OF SYSTEMS - ADULT Constitutional: reports: see HPI, chills, fatique, night sweats. denies: fever Eyes: reports: no symptoms reported Ears, Nose, Mouth & Throat: reports: no symptoms reported Cardiovascular: reports: no symptoms reported Respiratory: reports: see HPI, cough, dyspnea on exertion, shortness of breath Gastrointestinal: reports: see HPI, abdominal pain, nausea. denies: constipation, diarrhea, vomiting Genitourinary: reports: no symptoms reported Musculoskeletal: reports: no symptoms reported Integumentary: reports: no symptoms reported Neurological: reports: no symptoms reported Psychiatric: reports: no symptoms reported Endocrine: reports: no symptoms reported Hematologic/Lymphatic: reports: no symptoms reported Allergic/Immunologic: reports: no symptoms reported All Other Systems: Reviewed and Negative Past History - Adult - PAST MEDICAL HISTORY-ADULT Review of Records: reports: Old Records Reviewed, Nursing Assessment Review, Medications Reviewed, Social history reviewed & non-contributory. Major Childhood Illnesses: reports: denies history Cardiovascular: reports: denies history Respiratory: reports: COPD, sleep apnea, other (emphysema) Gastrointestinal: reports: GERD, liver disease (biliary cirrhosis), pancreatitis (cyst), other (colostomy) Obstetrical/Gynecological: reports: denies history Genitourinary: reports: denies history Musculoskeletal: reports: denies history Neurological: reports: Seizures/Epilepsy Psychiatric: reports: anxiety, depression Endocrine/Immune: reports: Diabetes Other Conditions: reports: denies history - PRIOR SURGERIES/PROCEDURES Surgical/Procedure History: reports: EGD (ercp), colonoscopy, cholecystectomy, BTL, , bowel surgery, other (colostomy) - PRIOR HOSPITALIZATIONS Prior Hospitalizations: reports: for similar symptoms - IMMUNIZATION STATUS Childhood Immunizations: UTD, See Nurse Assessment Flu Vaccine: See Nurse Assessment - FAMILY HISTORY Family History: reviewed, not pertinent - SOCIAL HISTORY Smoking: cigarettes, greater than 1 pack/day Provider spent 3-5 mins advising pt. on dangers of tobacco.: Discussed manners to quit use, and f/u contacts for add'l counseling. Substance Use: none/never, alcohol Alcohol Use Frequency: sober (former use) Living Situation: family Physical Exam-General - PHYSICAL EXAM-ADULT Initial Vital Signs Reviewed: Yes - CONSTITUTIONAL General Appearance: appears well, alert, mild distress, anxious - EYES Eyes: PERRL/EOMI, pink conjunctivae, fundi clear, no AV nicking - HEAD, EARS, NOSE, MOUTH & THROAT HENMT: normocephalic/atraumatic, moist mucous membranes, normal ENT inspection, TMs normal, pharynx normal - NECK Neck: non-tender, full range of motion, supple, normal inspection - RESPIRATORY Respiratory: chest non-tender, no pleuratic chest pain, no respiratory distress , no accessory muscle use, crackles, wheezing. negative: lungs clear, normal breath sounds, respiratory distress, accessory muscle use - CARDIOVASCULAR Cardiovascular: normal peripheral pulses, regular rate, rhythm, no edema, no gallop, no JVD, no murmur - GASTROINTESTINAL (ABDOMEN) Abdominal Exam: normal bowel sounds, soft, no organomegaly, no pulsatile mass, tenderness (LUQ), other (COLOSTOMY LLQ). negative: non tender - LYMPHATIC Lymphatic: no adenopathy - MUSCULOSKELETAL Back Exam: normal inspection, no CVA tenderness, no vertebral tenderness Extremity: normal range of motion, non-tender, normal gait, normal inspection, no pedal edema, no calf tenderness, normal capillary refill, pelvis stable - SKIN Integumentary: normal color, normal turgor, warm/dry - NEUROLOGIC Neurologic: data solutions architect II-XII nml as tested, grossly normal, no motor/sensory deficits - PSYCHIATRIC Psych/Mental Status: normal thought content, normal thought process, oriented x 3, anxious, disheveled. negative: normal mood/affect Progress - PLAN OF CARE/RESULTS Progress/Plan/Lab Results: Vital Signs - 8 hr 05/21/16 22:13 Temperature 97.4 F L Pulse Rate 98 H Respiratory Rate 18 Blood Pressure 158/80 O2 Sat by Pulse Oximetry 99 Orders Category Date Time Status EKG [EKG] Stat Ther 05/21/16 22:17 Ordered Result Diagrams: 06/02/16 06:00 06/03/16 06:46 Departure - Departure Time of Disposition Decision: 14:45 DIAGNOSIS: COPD (chronic obstructive pulmonary disease) Qualifiers: COPD type: unspecified COPD Qualified Code(s): J44.9 - Chronic obstructive pulmonary disease, unspecified Abdominal pain Qualifiers: Abdominal location: unspecified location Qualified Code(s): R10.9 - Unspecified abdominal pain Disposition: ADMITTED INPATIENT 09 Certified Medical Emergency: Emergent Condition: Stable - Critical Care Note This patient required my direct personal management.: No This chart was documented by the indicated scribe, (Whit Travis Scribe) and accurately reflects the services I performed and decisions made by me, Anibal Mcneil MD, as attested by the provider's signature.
== END 2016-06-03 16:25 | disposition home health service (06) ==
LOC: ED 22:06 → SUATTDRO 05-22 04:12 → 3N 05-22 04:12
PROVIDERS: ATTEND Internal Medicine
PROC: [UNRECOGNIZED PROCEDURE] (2016-05-26 07:46)

== ENCOUNTER 2016-06-11 14:25 | Inpatient (IN) ==
[2016-06-11] MEDS ORDERED: DUONEB (A & A) INH PRN ×2 (16:42→16:54)
--- NOTE | 2016-06-11 16:47 | EKG Report ---
Test Performed on : 06/11/2016 4:29:28 PM Test Reason : Upper Ext DVT Blood Pressure : / mmHG Vent. Rate : 063 BPM Atrial Rate : 063 BPM P-R Int : 138 ms QRS Dur : 080 ms QT Int : 430 ms P-R-T Axes : 082 082 085 degrees QTc Int : 440 ms Normal sinus rhythm. Normal ECG When compared with ECG of 21-MAY-2016 22:24, No significant change was found Confirmed by Benny Hannah MD ([id number]) on 06/12/2016 12:09:45 PM
[2016-06-11] MEDS ORDERED: NICODERM PATCH TD SCH (17:00)
--- NOTE | 2016-06-11 17:20 | Diag Imaging Result Document ---
PROCEDURE NAME: CHEST-2 VIEWS - 06/11/2016 FRONTAL AND LATERAL CHEST, 2 VIEWS: FINDINGS: Compared to 06/02/2016. A left-sided PICC line has been placed since the prior exam. The tip overlies the distal superior vena cava. The lungs are hyperexpanded. There is an increased AP diameter to the chest. There are no infiltrates on the current exam. No pleural effusions. IMPRESSION: 1. Emphysema. 2. No pneumonia.
--- NOTE | 2016-06-11 17:22 | HISTORY AND PHYSICAL ---
CHIEF COMPLAINT: Left arm swelling and pain. HISTORY OF PRESENT ILLNESS: Mrs. Rivera is a 65-year-old female, who was recently discharged from our service on 06/03/2016 with a diagnosis of small lung cell carcinoma. She was seen at that time by Dr. Damon with Heme-Onc and was started on chemotherapy. She also had postobstructive pneumonia and had a PICC line inserted and went home with IV antibiotics followed by Dr. Alves. She states that over the weekend she started having some chest pain and shortness of breath, her shortness of breath was more than normal. On Thursday she started having left upper extremity swelling and pain. She saw Dr. Alves today and he ordered an upper extremity venous Doppler which revealed subclavian DVT. She was sent here for direct admission. At this time laboratory data has been ordered as has diagnostics but we are still waiting on those results. She is currently resting in bed without acute complaints at this time. She has no other real complaints. She denies cough or congestion. No hemoptysis. She denies any lower extremity pain or swelling. She denies any new changes in bowel movements or urination. She denies any fevers or chills. PAST MEDICAL HISTORY: 1. Recently diagnosed small cell lung cancer, status post chemotherapy followed by Dr. Damon. 2. Postobstructive pneumonia status post PICC line insertion with IV antibiotics followed by Dr. Alves. 3. Type 2 diabetes. 4. Gastroesophageal reflux disease. 5. Chronic pancreatitis. 6. Nicotine dependence, recently quit 2 weeks ago. 7. Cirrhosis of the liver. 8. 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 9. Chronic pain. SURGICAL HISTORY: She has had a cholecystectomy, , skin lesion excision from the left side of her head, colostomy and recent lung biopsy. SOCIAL HISTORY: Patient denies alcohol or illicit drug use. She has a history of nicotine dependence, she quit 2 weeks ago. FAMILY HISTORY: Noncontributory. REVIEW OF SYSTEMS: Fourteen-point review of systems obtained and found to be negative with the exception of the HPI. HOME MEDICATIONS: DuoNeb as needed. Zyloprim 300 mg p.o. daily. Amitriptyline 25 mg daily. Lexapro 20 mg daily. Neurontin 100 mg p.o. every 8 hours as needed. Lantus insulin 28 units subcu daily. Lactobacillus 1 b.i.d. Creon 6000 units as directed. Prilosec 40 mg daily. Tramadol 50 mg as needed, and IV antibiotics per Dr. Alves. ALLERGIES TO: Morphine and penicillin. PHYSICAL EXAMINATION: VITAL SIGNS: Blood pressure is 139/63, heart rate 70, respiratory rate 16, O2 saturation 100% on room air. Temperature is 98 degrees. GENERAL: This is a frail 65-year-old female, lying in hospital bed. No acute distress. NEUROLOGIC: The patient is awake, alert, and oriented. She follows commands without focal deficits. HEENT: Head atraumatic, normocephalic. Pupils equal, round, reactive to light. Oral mucosa is moist. Trachea is midline. No JVD. CHEST: Lung sounds diminished at the bases but clear to auscultation bilaterally. CV: Regular rate and rhythm. S1, S2 is noted. No murmurs, gallops, clicks, or rubs. GI: Colostomy noted in the left lower quadrant. Belly is soft. Bowel sounds are active. EXTREMITIES: Upper extremity on the left with 1+ edema. Otherwise all other extremities no edema, clubbing or cyanosis. Pulses palpable bilaterally. DIAGNOSTIC DATA: Pending. ASSESSMENT AND PLAN: 1. Left upper extremity DVT: We will start Lovenox 1 mg/kg and switch to a novel anticoagulant once she is therapeutic with Lovenox. She will also need the PICC line removed, again this will be need to be done likely tomorrow. 2. Chest pain, shortness of breath: Concern for PE, a CTA of the chest has been ordered. Lovenox will be started. We will need to make sure she does not have coronary syndrome so will rule out myocardial infarction with cardiac enzymes and verify she does not continue to have a postobstructive pneumonia. 3. Left upper extremity PICC line: This is for IV antibiotics. Will consult Dr. Alves and take out the PICC line. She will have another peripheral IV inserted and we will need to make a decision on long-term antibiotics. 4. Small lung cell cancer: Dr. Damon with Heme-Onc has been consulted. We will defer any continued treatment to her. 5. Type 2 diabetes: Will add pattern sugars and sliding scale insulin. 6. GERD. Continue home medications. 7. DVT prophylaxis with Lovenox. Further recommendations to follow. Dictated by MARTIN Saeed for Juan Rodriguez MD cc: MARTIN Saeed MD [facility]
[2016-06-11 17:27] LABS: HEMATOCRIT 34.3 % (37.0-47.0); HEMOGLOBIN 11.3 g/dL (12.0-16.0); MCH 27.4 PG (27-31); MCHC 32.9 g/dL (33-37); MCV 83.1 FL (81-99); MPV 10.1 FL (7.4-10.4); RBC 4.13 XMIL (4.2-5.4)
[2016-06-11 17:42] LABS: AGAP 15; ALBUMIN 3.5 g/dL (3.5-5.0); ALKALINE PHOSPHATASE 225 U/L (32-104); BUN 3 mg/dL (8-22); CALCIUM 8.8 mg/dL (8.8-10.2); CHLORIDE 96 mmol/L (98-107); COSMO 263; GOT 36 U/L (10-30); GPT 60 U/L (10-36); MAGNESIUM 1.3 mg/dL (1.5-2.7); POTASSIUM 3.6 mmol/L (3.5-5.1); SODIUM 133 mmol/L (136-145); TCO2 22 mmol/L (25-35); TOTAL BILIRUBIN 0.18 mg/dL (0.20-1.00); TOTAL PROTEIN 6.8 g/dL (6.3-8.3)
[2016-06-11 17:50] LABS: INR 0.96
[2016-06-11] MEDS ORDERED: MAXIPIME 2 GM/NS 2 GM/100 ML IVPB IV SCH ×2 (18:00→20:00)
[2016-06-11] MEDS: DUONEB (A & A) INH SCH ×2 (19:00→22:50)
[2016-06-11] MEDS ORDERED: DUONEB (A & A) INH SCH (19:30)
[2016-06-11] MEDS ORDERED: SEPTRA DS PO SCH (21:00)
[2016-06-11] MEDS: SEPTRA DS PO SCH ×2 (21:51→22:21)
[2016-06-11] MEDS: LOVENOX SUBQ SCH (21:51)
[2016-06-11] MEDS: ULTRAM PO PRN (21:51)
[2016-06-11] MEDS: HUMALOG SUBQ SCH ×2 (21:52→21:55)
[2016-06-12] MEDS: DUONEB (A & A) INH SCH ×2 (03:20→07:28)
[2016-06-12 05:53] VITALS: BP 117/56
[2016-06-12] MEDS: HUMALOG SUBQ SCH (06:05)
[2016-06-12 06:44] LABS: AGAP 14; BUN 4 mg/dL (8-22); CALCIUM 8.4 mg/dL (8.8-10.2); CHLORIDE 102 mmol/L (98-107); COSMO 281; POTASSIUM 3.5 mmol/L (3.5-5.1); SODIUM 141 mmol/L (136-145); TCO2 25 mmol/L (25-35)
[2016-06-12] MEDS ORDERED: NEURONTIN PO PRN (07:55)
--- NOTE | 2016-06-12 07:55 | PROGRESS NOTE ---
DATE: 06/12/2016 PRESENT ILLNESS: The patient called to inform us that she had swelling of her left arm. I went ahead and ordered a Doppler study which showed deep venous thrombosis involving the subclavian and axillary vein as well as superficial venous thrombosis as well. The patient had a PICC in that arm that she was receiving antibiotics for pneumonia. MEDICATIONS: At home, the patient was taking Septra by mouth and cefepime IV. PHYSICAL EXAMINATION: Vital Signs: Temperature is 98.7 degrees, pulse 72, respirations 16, blood pressure 117/56. Lungs: Clear to auscultation. Cardiovascular: Regular heart rate. Abdomen: Soft and nontender. Extremities: The left arm now is not swollen at all. It is the same size as the right arm. LAB AND X-RAY STUDIES: Doppler study of the left arm showed deep venous as well as superficial venous thrombosis. Creatinine 0.6. GFR is greater than 60. Liver function studies are elevated. CPK is 36. CBC shows a white count of 3910, hemoglobin 11.3, and platelet count of 226,000. ASSESSMENT AND PLAN: From an infectious disease point of view, since the patient's latest chest x- ray shows no infiltrates and is totally clear, I have stopped the patient's antibiotics. I will be available to see the patient on an as needed basis. Dr. Rodriguez is going to manage the clot that the patient has in her left arm. The patient's main comorbidity is lung cancer. The patient also has diabetes and COPD. She smoke cigarettes. She also has pancreatitis. I am available to see the patient on an as needed basis. cc: MD Juan Talbot MD
--- NOTE | 2016-06-12 08:24 | Diag Imaging Result Document ---
PROCEDURE NAME: ANGIOGRAM/PULMONARY ARTERIES - 06/11/2016 CT ANGIOGRAM PULMONARY ARTERIES WITH CONTRAST: TECHNIQUE: Exam performed with intravenous contrast. A dose reduction protocol was used. Axial and coronal images are obtained. COMPARISON: Compared with the CT thorax of 05/22/2016. FINDINGS: There are no filling defects identified in the pulmonary arteries. The left hilar mass has decreased substantially in size. The mediastinal adenopathy has decreased. There is infiltrate in the medial aspect of the superior segment of left lower lobe which is decreased. There has been development of hazy mild infiltrate at the perihilar inferior right lower lobe. There is no pleural effusion or pneumothorax identified. IMPRESSION: 1. No evidence of pulmonary embolism. 2. Substantial decrease in size of the left hilar mass compared to 05/22/2016. There has also been interval decrease in mediastinal adenopathy. 3. Residual infiltrate at medial aspect of the superior segment of the left lower lobe which has decreased. Development of mild ill-defined infiltrate at the inferior right upper lobe. The on-call radiologist provided preliminary results at 6:37 p.m. on 06/11/2016.
[2016-06-12] MEDS ORDERED: LEXAPRO PO SCH (09:00)
[2016-06-12] MEDS ORDERED: VENTOLIN HFA INH SCH (09:00)
[2016-06-12] MEDS ORDERED: ELAVIL PO SCH (09:00)
[2016-06-12] MEDS ORDERED: PRILOSEC PO SCH (09:00)
[2016-06-12] MEDS ORDERED: LANTUS SUBQ SCH (09:00)
[2016-06-12] MEDS: ULTRAM PO PRN (10:08)
[2016-06-12] MEDS: LOVENOX SUBQ SCH (10:08)
[2016-06-12] MEDS ORDERED: ELIQUIS PO SCH ×2 (10:30→21:00)
--- NOTE | 2016-06-12 10:36 | PROGRESS NOTE ---
DATE: 06/12/2016 SUBJECTIVE: Today Ms. Rivera refers to be doing fine. Denies any acute complaints. OBJECTIVE: Vital signs: Blood pressure is 117/56, pulse of 72, respirations 16, temperature is 98.7 degrees. General: Ms. Rivera is a 65-year-old female. She was in bed. No distress. HEENT: Mucosa is pink and moist. Anicteric. Acyanotic. Neck: Supple. Chest: Good air entry bilaterally. No crepitations. No rhonchi. Cardiovascular: Regular rate and rhythm. Abdomen: Soft, nontender. Extremities: No pedal edema. MAGNETIC RESONANCE IMAGING DIRECTOR: Patient is alert and oriented x4. Skin: On the skin, the left upper forearm has a PICC line placed. There is some engorgement of the superficial veins on the left chest wall. Doppler ultrasound which was done yesterday did show acute DVT in the left subclavian and axillary veins and also clot in the basilic and other small superficial veins. LABORATORY DATA: WBC from yesterday is reviewed and unremarkable. Chemistry is reviewed and is unremarkable. ASSESSMENT: 1. Left upper extremity deep vein thrombosis with association to a PICC line. The patient is getting Lovenox therapeutic dose. Today will be the 2nd dose which means she will be fully anticoagulated, so after the 2nd dose we will be able to retrieve the PICC line. Subsequently patient will be discharged on p.o. Eliquis. 2. History of small-cell lung cancer. Patient follows up with Dr. Damon. 3. Diabetes mellitus, controlled. 4. Gastroesophageal reflux disease. 5. Recently treated pneumonia. This is improved. 6. History of chronic pancreatitis, noted. PLAN: So in general, I think Ms. Rivera is relatively stable. She is fully anticoagulated with Lovenox. We are going to remove the PICC line and start her on Eliquis. All of the side effects of the medication have been discussed. Patient is advised to follow up with Dr. Damon, her oncologist, and also with Dr. Alves and Dr. Rivera, the GP. cc: Juan Rodriguez MD
--- NOTE | 2016-06-12 16:11 | DISCHARGE SUMMARY ---
ADMISSION DATE: 06/11/2016 DISCHARGE DATE: 06/12/2016 CONSULTATIONS: Wayne Alves MD. PERTINENT PROCEDURES: 1. Pulmonary arteriogram showed no evidence of PE. It did show a subjective substantial decrease in size of the left hilar mass compared to 05/22/2016 and also an interval decrease in mediastinal adenopathy, residual infiltrate at medial aspect of the superior segment of the left lower lobe which has decreased, development of mild ill-defined infiltrate at the inferior right upper lobe. 2. Chest x-ray showed emphysema, no pneumonia. DISCHARGE DIAGNOSES: 1. Left upper extremity DVT associated with PICC line. The patient was getting therapeutic doses of Lovenox. After her second dose her PICC line will be discontinued and she will be discharged on p.o. Eliquis with medical assistance. 2. History of small cell lung cancer followed by Dr. Damon. 3. Diabetes mellitus, controlled. 4. Gastroesophageal reflux disease. 5. Recently treated pneumonia, this has improved. IV antibiotics have been stopped by Dr. Alves. He is available on a p.r.n. basis. 6. Chronic pancreatitis history noted. HOSPITAL COURSE: Ms. Rivera is a 65-year-old, female recently discharged from our service on 06/03/2016 with a diagnosis of small lung cell carcinoma. She was seen by Dr. Damon and was started on chemotherapy. She also had post-obstructive pneumonia. She had a PICC line inserted and went home on IV antibiotics, followed by Dr. Wayne Alves. Over this past weekend she started having some chest pain with shortness of breath and on Thursday she started having left upper extremity swelling and pain. She saw Dr. Alves. He ordered an upper extremity venous Doppler which revealed a subclavian DVT and she was sent here for direct admission. She also underwent a pulmonary arteriogram. She was started on full dose Lovenox and after 2 doses the patient was transitioned to Eliquis. Labor Training Manager was consulted for medication assistance through Eliquis. Her PICC line will be discontinued per Dr. Alves. The patient's pneumonia has cleared so he discontinued her IV antibiotics and he will be available on a p.r.n. basis. The patient is being discharged home today. DISCHARGE VITAL SIGNS: Temperature is 98.7 degrees, heart rate 72, respirations 16, blood pressure is 117/56, O2 is 96% on room air. DISCHARGE MEDICATIONS: 1. Atenolol inhaler 2 puffs inhaled b.i.d. 2. Amitriptyline 25 mg p.o. b.i.d. 3. Eliquis 2 mg p.o. b.i.d. for 7 days and then 5 mg p.o. b.i.d. 4. Lexapro 20 mg p.o. q.a.m. 5. Neurontin 100 mg p.o. q.8 hours. 6. Lantus 28 units subcutaneous q.a.m. 7. Prilosec 40 mg p.o. daily. 8. Ultram 50 mg p.o. q.6 hours. DISCHARGE DIET: Diabetic. FOLLOWUP: 1. Patient is being discharged home with self-care as well as medication assistance with Eliquis. 2. She will need to continue to follow up with Dr. Angela Damon, her oncologist, as well as her primary care physician, Dr. Rivera, in 1 week. 3. The patient can return to the ED for any worsening of symptoms. Dictated by MARTIN Sanchez for Juan Rodriguez MD cc: MD Garima Batista MD
--- NOTE | 2016-06-16 09:05 | Extremity Venous Study ---
PROCEDURE NAME: Venous U/S Left Arm - 06/11/2016 REFERRING PHYSICIAN: Dr. Alves. READING PHYSICIAN: Semaj Garay MD. MILLINERY SALESPERSON: Fanny. INDICATION: Left arm swelling for 3 days. The patient has had a PICC line in the left arm for 2 weeks. FINDINGS: Occlusive thrombus is noted in the left subclavian and axillary veins. The internal jugular and brachial veins appear to be compressible and without thrombus. There is thrombus in the left cephalic proximal forearm. It is noncompressible. In the upper arm, the cephalic vein appears to be normal. The basilic vein in the forearm appears to be compressible and patent, and without thrombus. However, in the upper arm, it is noncompressible and does have thrombus. The median cubital vein also appears to be thrombotic and noncompressible. INTERPRETATION: There is acute deep vein thrombosis of the left subclavian and axillary veins, and acute superficial venous thrombosis of the left basilic vein in the upper arm, the left median cubital vein, and the left cephalic vein in the proximal forearm. These findings were called to Dr. Alves after the study. cc: MD Wayne Cifuentes MD Raphael K. Quansah, MD
[2016-06-19] MEDS ORDERED: ELIQUIS PO SCH (09:00)
== END 2016-06-12 11:25 | disposition home or self-care (01) ==
LOC: BF 14:25 → DIRADM 15:32 → 4N 15:35
PROVIDERS: ADMIT Internal Medicine; ATTEND Internal Medicine

== ENCOUNTER 2016-07-19 15:47 | Inpatient (IN) ==
[2016-07-19] MEDS ORDERED: ASPIRIN PO STA (15:57)
[2016-07-19 16:11] LABS: MANUAL DIFF NEEDED? NO
[2016-07-19 16:16] LABS: BASO% 0.4 % (0.0-0.8); EOS# 0.05 X1000 (0.0-0.7); EOS% 0.7 % (0.0-10.0); HEMATOCRIT 35.4 % (37.0-47.0); HEMOGLOBIN 11.8 g/dL (12.0-16.0); LYMPH# 2.53 X1000 (1.2-3.4); LYMPH% 34.7 % (20.5-51.1); MCH 28.2 PG (27-31); MCHC 33.3 g/dL (33-37); MCV 84.5 FL (81-99); MONO# 0.05 X1000 (0.11-0.59); MONO% 0.7 % (1.7-9.3); MPV 10.5 FL (7.4-10.4); NEUT% 63.5 % (42.2-75.2); PLT 206 X1000 (130-400); RBC 4.19 XMIL (4.2-5.4)
[2016-07-19] MEDS ORDERED: ZOFRAN IV ONE (16:19)
[2016-07-19] MEDS ORDERED: NS 1,000 ML IV ONE (16:19)
[2016-07-19] MEDS ORDERED: DILAUDID IV ONE (16:20)
[2016-07-19 16:25] LABS: INR 0.99; PROTIME 10.4 Seconds (9.2-11.7); PTT 25.9 Seconds (22.0-36.0)
[2016-07-19 16:32] LABS: ALBUMIN 3.8 g/dL (3.5-5.0); CALCIUM 8.5 mg/dL (8.8-10.2); MAGNESIUM 1.2 mg/dL (1.5-2.7); TOTAL BILIRUBIN 0.44 mg/dL (0.20-1.00); TOTAL PROTEIN 6.7 g/dL (6.3-8.3)
--- NOTE | 2016-07-19 16:48 | Diag Imaging Result Doc PS360 ---
EXAM: CHEST-2 VIEWS HISTORY: CP TECHNIQUE: COMPARISON: 07/08/2016 FINDINGS: The lungs are hyperexpanded. The heart is not enlarged. The vessels are not distended. There are no infiltrates. No pleural effusions. IMPRESSION: The patient likely has mild emphysema. Electronically signed by Shaggy Smith 07/19/2016 4:46 PM
--- NOTE | 2016-07-19 17:30 | PROVIDER DOCUMENTATION ---
This chart was entered by Amalia Turk Scribe, acting as scribe for Nico Cochran MD. HPI-Chest Pain - General Chief Complaint: Chest Pain Stated Complaint: CP/SOB Time Seen by Provider: 07/19/16 16:03 Source: patient Allergies/Adverse Reactions: Patient Allergies Allergy/AdvReac Type Severity Reaction Status Date / Time morphine Allergy Severe ITCHING Verified 05/21/16 22:25 Penicillins Allergy Severe ITCHING Verified 05/21/16 22:25 Home Medications: Home Medication List Medication Instructions Recorded Confirmed Last Taken Type Omeprazole [Prilosec] 40 mg PO QAM 11/05/11 06/11/16 06/10/16 10:00 History Escitalopram [Lexapro] 20 mg PO QAM 12/19/11 06/11/16 06/10/16 08:00 History Gabapentin [Neurontin] 100 mg PO Q8HR PRN 07/30/13 06/11/16 06/10/16 14:00 History Insulin Glargine [Lantus] 28 unit SUBQ QAM 07/18/14 06/11/16 06/08/16 08:00 History Tramadol [Ultram] 50 mg PO Q6H PRN PRN #30 tablet 07/18/14 06/11/16 06/11/16 09: 00 Rx Amitriptyline HCl 25 mg PO BID 07/25/15 06/11/16 06/10/16 21:30 History Albuterol Sulfate Inhaler 2 puff INH BID 06/11/16 06/11/16 06/11/16 13:30 History [Ventolin Hfa] Apixaban [Eliquis] 10 mg PO BID #14 tablet 06/12/16 Unknown Rx Apixaban [Eliquis] 5 mg PO BID #30 tablet 06/19/16 Unknown Rx - History of Present Illness-CP Nature of Presenting Problem: Pt is a 65 year old female who came to the ED with a cc of chest pain that started last night after radiation. Pt reports the pain is like pressure and when she takes a deep breath it is worse. Pt reports she has a hx of pneumonia and lung cancer. Pt denies N/V. Location: reports: central Chest Pain Radiation: reports: no radiation Quality of Pain: reports: pressure Severity in ED: mild Onset/Duration: last night Timing: still present Nitro Today/Relief: no nitro taken today Aspirin Treatment Today: no aspirin today Prior Chest Pain/Cardiac Workup: reports: no prior chest pain Similar Symptoms Previously?: No Recently Seen Here or By Another Healthcare Provider: Yes Review of Systems - Adult - REVIEW OF SYSTEMS - ADULT Constitutional: reports: chills, fever. denies: fatique, weight loss Eyes: reports: no symptoms reported Ears, Nose, Mouth & Throat: reports: no symptoms reported Cardiovascular: reports: chest pain. denies: heart murmur, orthopnea Respiratory: reports: cough, pleurisy. denies: shortness of breath, wheezing Gastrointestinal: denies: diarrhea, nausea, vomiting Genitourinary: reports: no symptoms reported Musculoskeletal: reports: no symptoms reported Integumentary: reports: no symptoms reported Neurological: reports: no symptoms reported Psychiatric: reports: no symptoms reported Endocrine: reports: no symptoms reported Hematologic/Lymphatic: reports: no symptoms reported Allergic/Immunologic: reports: no symptoms reported All Other Systems: Reviewed and Negative Past History - Adult - PAST MEDICAL HISTORY-ADULT Review of Records: reports: Nursing Assessment Review Major Childhood Illnesses: reports: denies history Cardiovascular: reports: denies history Respiratory: reports: COPD, sleep apnea, other (emphysema) Gastrointestinal: reports: GERD, liver disease (biliary cirrhosis), pancreatitis (cyst), other (colostomy) Obstetrical/Gynecological: reports: denies history Genitourinary: reports: denies history Musculoskeletal: reports: denies history Neurological: reports: Seizures/Epilepsy Psychiatric: reports: anxiety, depression Endocrine/Immune: reports: Diabetes Other Conditions: reports: denies history - PRIOR SURGERIES/PROCEDURES Surgical/Procedure History: reports: EGD (ercp), colonoscopy, cholecystectomy, BTL, , bowel surgery, other (colostomy) - PRIOR HOSPITALIZATIONS Prior Hospitalizations: reports: for similar symptoms - IMMUNIZATION STATUS Childhood Immunizations: UTD, See Nurse Assessment Flu Vaccine: See Nurse Assessment - FAMILY HISTORY Family History: reviewed, not pertinent Physical Exam-General - PHYSICAL EXAM-ADULT Initial Vital Signs Reviewed: Yes - CONSTITUTIONAL General Appearance: alert, no apparent distress - EYES Eyes: PERRL/EOMI, pink conjunctivae - HEAD, EARS, NOSE, MOUTH & THROAT HENMT: normocephalic/atraumatic, moist mucous membranes - NECK Neck: non-tender, full range of motion - RESPIRATORY Respiratory: chest non-tender, lungs clear - CARDIOVASCULAR Cardiovascular: normal peripheral pulses, regular rate, rhythm - GASTROINTESTINAL (ABDOMEN) Abdominal Exam: normal bowel sounds, non tender - MUSCULOSKELETAL Back Exam: normal inspection, no CVA tenderness Extremity: normal range of motion, non-tender - SKIN Integumentary: pallor - NEUROLOGIC Neurologic: grossly normal - PSYCHIATRIC Psych/Mental Status: normal mood/affect, normal thought content, normal thought process, oriented x 3 Progress - PLAN OF CARE/RESULTS Progress/Plan/Lab Results: Vital Signs - 8 hr 07/19/16 15:55 07/19/16 16:54 Temperature 97.5 F L 97.6 F Pulse Rate 105 H 85 Respiratory Rate 18 18 Blood Pressure 148/69 128/72 O2 Sat by Pulse Oximetry 100 98 Laboratory Results - last 24 hr 07/19/16 07/19/16 07/19/16 16:00 16:00 16:00 WBC 7.30 RBC 4.19 L Hgb 11.8 L Hct 35.4 L MCV 84.5 MCH 28.2 MCHC 33.3 RDW Std Deviation 15.5 H Plt Count 206 MPV 10.5 H Immature Gran % (Auto) 0.0 Neut % (Auto) 63.5 Lymph % (Auto) 34.7 [place] % (Auto) 0.7 L Eos % (Auto) 0.7 Baso % (Auto) 0.4 Immature Gran # (Auto) 0.00 Neut # (Auto) 4.64 Lymph # (Auto) 2.53 [place] # (Auto) 0.05 L Eos # (Auto) 0.05 Baso # (Auto) 0.03 PT INR PTT (Actin FS) D-Dimer 0.38 Sodium 134 L Potassium 4.0 Chloride 94 L Carbon Dioxide 23 L Anion Gap 17 BUN 16 Creatinine 1.1 H Estimated GFR/1.73 m2 50 BUN/Creatinine Ratio 15 Glucose 235 H Calculated Osmolality 277 Calcium 8.5 L Magnesium 1.2 L Total Bilirubin 0.44 AST 18 ALT 14 Alkaline Phosphatase 130 H Creatine Kinase 39 Troponin T Znk-B-Hpyvfhmajsk Pept Total Protein 6.7 Albumin 3.8 Globulin 2.9 Albumin/Globulin Ratio 1.3 07/19/16 07/19/16 07/19/16 16:00 16:00 16:00 WBC RBC Hgb Hct MCV MCH MCHC RDW Std Deviation Plt Count MPV Immature Gran % (Auto) Neut % (Auto) Lymph % (Auto) [place] % (Auto) Eos % (Auto) Baso % (Auto) Immature Gran # (Auto) Neut # (Auto) Lymph # (Auto) [place] # (Auto) Eos # (Auto) Baso # (Auto) PT 10.4 INR 0.99 PTT (Actin FS) 25.9 D-Dimer Sodium Potassium Chloride Carbon Dioxide Anion Gap BUN Creatinine Estimated GFR/1.73 m2 BUN/Creatinine Ratio Glucose Calculated Osmolality Calcium Magnesium Total Bilirubin AST ALT Alkaline Phosphatase Creatine Kinase Troponin T < 0.010 Pyd-H-Preacrftkul Pept 75 Total Protein Albumin Globulin Albumin/Globulin Ratio Orders Category Date Time Status Cardiac Monitoring DIRECTED Care 07/19/16 15:57 Active Saline Loc NOW Care 07/19/16 15:57 Active CHEST-2 VIEWS [RAD] Stat Exams 07/19/16 15:57 Completed CBC WITH ELECTRONIC DIFF [HEME] Stat Lab 07/19/16 16:00 Completed CK PROFILE [SP CHEM] Stat Lab 07/19/16 16:00 Completed COMPREHENSIVE METABOLIC PANEL [CHEM] Stat Lab 07/19/16 16:00 Completed D-DIMER [CHEM] Stat Lab 07/19/16 16:00 Completed LIPASE [CHEM] Stat Lab 07/19/16 16:00 Received MAGNESIUM [CHEM] Stat Lab 07/19/16 16:00 Completed PRO B-NATRIURETIC PEPTIDE Stat Lab 07/19/16 16:00 Completed PROTIME WITH INR [COAG] Stat Lab 07/19/16 16:00 Completed PTT [COAG] Stat Lab 07/19/16 16:00 Completed TROPONIN T Stat Lab 07/19/16 16:00 Completed UA NIMS W/REFLEX CULT [URINALYSIS] Stat Lab 07/19/16 16:19 Uncollected 0.9% Sodium Chloride Inj [Ns] 1,000 ml Med 07/19/16 16:19 Discontinued IV 999 mls/hr Aspirin Med 07/19/16 15:57 Discontinued 325 mg PO STAT STA Hydromorphone [Dilaudid] Med 07/19/16 16:20 Discontinued 1 mg IV NOW ONE Ondansetron [Zofran] Med 07/19/16 16:19 Discontinued 4 mg IV NOW ONE EKG [EKG] Stat Ther 07/19/16 15:56 Ordered Result Diagrams: 07/19/16 16:00 07/19/16 16:00 - EKG 1 Time of EKG reading by physician:: 15:57 EKG Read and Signed by:: Nico Cochran EKG Interpretation (*Must complete 3 of following elements*): Abnormal Rate: 90 (possible left atrial enlargement) Rhythm: NSR - CONSULTS/PCP/HOSPITALIST Notification #1 *Consult/PCP/Hospitalist*: Dr. Gerber/Melody Time Discussed: 17:26 Consult Disposition: Admit Departure - Departure Date of Disposition Decision: 07/19/16 Time of Disposition Decision: 17:26 DIAGNOSIS: Chest pain, Lung cancer Disposition: ADMITTED INPATIENT 09 Certified Medical Emergency: Emergent Condition: Stable Referrals and Follow-Ups: Garima Rivera MD [Primary Care Provider] - - Critical Care Note This patient required my direct & personal management of CC.: No This chart was documented by the indicated scribe, (Amalia Turk Scribe) and accurately reflects the services I performed and decisions made by me, Nico Cochran MD, as attested by the provider's signature.
[2016-07-19 18:53] LABS: URINE CULTURE NEEDED? NO; URINE MICRO REVIEW NEEDED? NO; URINE SOURCE CLEAN CATCH
[2016-07-19 18:59] LABS: BILIRUBIN URINE NEGATIVE (NEGATIVE); BLOOD URINE NEGATIVE (NEGATIVE); COLOR YELLOW; GLUCOSE URINE 150 mg/dL (NEGATIVE); LEUKOCYTES URINE NEGATIVE (NEGATIVE); NITRITE URINE NEGATIVE (NEGATIVE); PROTEIN URINE TRACE mg/dL (NEGATIVE); SP GRAVITY URINE 1.021; TURBIDITY URINE CLEAR (CLEAR); UROBILINOGEN URINE NORMAL (NORMAL)
[2016-07-19 19:00] LABS: UR EPITHELIAL CELLS <10 /HPF (<10); URINE BACTERIA NEGATIVE /HPF; URINE RBC <10 /HPF (<10); URINE WBC <10 /HPF (<10)
[2016-07-19] MEDS ORDERED: ZOFRAN IV PRN ×2 (19:39→19:46)
[2016-07-19] MEDS ORDERED: COMPAZINE PO PRN ×2 (19:39→19:46)
[2016-07-19] MEDS ORDERED: NEURONTIN PO PRN ×2 (19:39→19:49)
[2016-07-19] MEDS ORDERED: NITROGLYCERIN SL PRN (19:39)
[2016-07-19] MEDS ORDERED: TYLENOL PO PRN ×2 (19:39→19:50)
--- NOTE | 2016-07-19 19:44 | HISTORY AND PHYSICAL ---
PRIMARY CARE PROVIDER: Dr. Rivera. PRIMARY ONCOLOGIST: Dr. Damon. CHIEF COMPLAINT: Nausea, shortness of breath, abdominal chest pain since radiation yesterday. HISTORY OF PRESENT ILLNESS: Ms Rivera is a 65-year-old female with frequent admissions and a diagnosis of small-cell carcinoma of the lung followed by Dr. Damon is now presenting with complaints of nausea, shortness of breath, abdominal epigastric type pain, chest pain since radiation yesterday. She also states that when she had chemo on Thursday she noticed feet swelling but resolved the next day. Her cardiac enzymes are negative. EKG has no ST elevations. Her chest pain improved with a dose of Dilaudid. When she presented she stated her pain was 8/10. It went down to a 1/10. She feels like the pain is what radiates down to her epigastric region. No other radiation. She feels like chest pain is intermittent, comes and goes but is mostly constant. She said it started around 10 o'clock last night. She also said it was associated with sweating and she feels as though she has a subjective fever. Ms. Trinh Rivera also has a colostomy that she states she was little bit constipated the day before but is diarrhea now since she was able to start taking her Creon for her chronic pancreatitis. Will admit overnight, do serial cardiac enzymes. Do an abdominal ultrasound to evaluate abdomen and if she continues to have chest pains could consider doing a stress test on Thursday. Will admit to a private room as she still currently receiving chemotherapy. PAST MEDICAL HISTORY: 1. Recently diagnosis small-cell lung cancer status post chemotherapy which was this past Thursday and radiation yesterday is followed by Dr. Damon. 2. Had postobstructive pneumonia in the past followed by Dr. Alves for that. 3. Diabetes mellitus type 2. 4. Diabetic neuropathy. 5. GERD. 6. Chronic pancreatitis takes Creon at home. 7. Nicotine dependence. 8. Cirrhosis of the liver. 9. 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 10. Chronic pain. SURGICAL HISTORY: She has had a cholecystectomy, section, skin lesion excision from the left side her head, colostomy and recent lung biopsy. SOCIAL HISTORY: She smokes 1-2 cigarettes per day since May. Prior to May she was smoking 10 cigarettes per day since age of 16. Denies alcohol or illicit drug use. Her son is currently living with her. FAMILY HISTORY: Mother side of family was healthy. Father's side of family had lung, pancreatic and breast cancer. REVIEW OF SYSTEMS: Fourteen point review of systems were complete all were negative except for those mentioned above HPI. ALLERGIES: Morphine and penicillin. HOME MEDICATIONS: Albuterol 2 puffs inhaled twice a day, amitriptyline 25 mg p.o. twice a day, Eliquis 5 mg p.o. twice daily, Neurontin 100 mg p.o. q.8 hours p.r.n., Lantus insulin, Prilosec 40 mg p.o. daily, Compazine 5 mg p.o. 3-4 times per day p.r.n. PHYSICAL EXAM: VITAL SIGNS: Temperature is 97.6 degrees, heart rate 67, respiratory 17, blood pressure 146/86, O2 saturation 98% on room air, she is 5 feet 4 inches tall, 125 pounds, BMI 21.5. GENERAL: Ms. Trinh Riveras a pleasant 65-year-old female. She is in no acute distress. She is able answer questions appropriately. HEENT: Atraumatic, normocephalic. Pupils equal, round, reactive to light. Extraocular movements intact. She has several missing teeth in her mouth. Mucous membranes are moist. NECK: No JVD or carotid bruits noted. CARDIOVASCULAR: S1, S2. Regular rate and rhythm. No rubs, gallops, murmurs. PULMONARY: Clear to auscultate. Bilateral breath sounds. No accessory muscle use or work of breathing noted. Currently on room air . GI: Left upper quadrant colostomy bag with no drainage around it, appears secure with brown stool loose stool, soft, tender in the epigastric region. Positive bowel sounds x4. SKIN: Warm, dry, intact. NEUROLOGIC: A and O x4. Moves all extremities equally. LABORATORY DATA: White blood cells 7000, hemoglobin 11, hematocrit 35, platelet count 206,000. INR 0.99, PTT is 25.9, D-dimer 0.38, sodium 134, potassium 4.0, BUN 16, creatinine is 1.1, glucose 235, calcium 8.5, magnesium 1.2, bilirubin 0.44, AST 18, ALT 14, alkaline phosphatase 130, CK 39, troponins less than 0.01, proBNP 75, protein 6.7, lipase 8. Urinalysis trace protein, 150 glucose otherwise negative. IMAGING: Chest x-ray, mild emphysema. ASSESSMENT AND PLAN: 1. Atypical chest pain with epigastric abdominal pain. Will do cardiac enzymes. Repeat EKG. If needed she can have stress test on Thursday, will repeat an echocardiogram and will do an abdominal ultrasound. Colostomy appears to be secured with normal stools and could be reflux in nature so will do a twice daily proton pump inhibitor. 2. Small-cell lung cancer history. Will consult Dr. Angela Damon. 3. Chronic pancreatitis. Will continue Creon 1 once verified as home medications. 4. Diabetes mellitus type 2. Pattern blood glucoses, sliding scale insulin, diabetic diet. 5. Tobacco abuse, cessation discussed. Dictated by MARTIN Gutierrez for Agustin Zhao MD cc: MD Agustin Ayala MD
[2016-07-19] MEDS: ELAVIL PO SCH (20:57)
[2016-07-19] MEDS: ELIQUIS PO SCH (20:57)
[2016-07-19] MEDS: PRILOSEC PO SCH (20:57)
[2016-07-19] MEDS: NITROGLYCERIN SL PRN (20:58)
[2016-07-19] MEDS ORDERED: ELIQUIS PO SCH (21:00)
[2016-07-19] MEDS: HUMULIN R SUBQ SCH (21:00)
[2016-07-19] MEDS ORDERED: ELAVIL PO SCH (21:00)
[2016-07-19] MEDS ORDERED: HUMULIN R SUBQ SCH (21:00)
[2016-07-19] MEDS ORDERED: PRILOSEC PO SCH (21:00)
[2016-07-20] MEDS: HUMULIN R SUBQ SCH ×4 (06:25→21:08)
[2016-07-20 06:38] LABS: MANUAL DIFF NEEDED? NO
[2016-07-20 06:47] LABS: BASO% 0.3 % (0.0-0.8); EOS# 0.05 X1000 (0.0-0.7); EOS% 0.9 % (0.0-10.0); HEMOGLOBIN 11.1 g/dL (12.0-16.0); IMM GRAN# 0.03 X1000 (0.0-0.04); IMM GRAN% 0.5 % (0.0-0.5); LYMPH# 2.51 X1000 (1.2-3.4); MCHC 32.6 g/dL (33-37); MCV 85.6 FL (81-99); MONO# 0.02 X1000 (0.11-0.59); MONO% 0.3 % (1.7-9.3); MPV 10.7 FL (7.4-10.4); PLT 164 X1000 (130-400); RBC 3.97 XMIL (4.2-5.4)
[2016-07-20 06:57] LABS: INR 0.96; PTT 23.4 Seconds (22.0-36.0)
[2016-07-20 07:06] LABS: AGAP 11; ALBUMIN 3.5 g/dL (3.5-5.0); ALKALINE PHOSPHATASE 152 U/L (32-104); BUN 14 mg/dL (8-22); CALCIUM 8.6 mg/dL (8.8-10.2); CHLORIDE 101 mmol/L (98-107); COSMO 284; GOT 47 U/L (10-30); GPT 31 U/L (10-36); POTASSIUM 4.3 mmol/L (3.5-5.1); SODIUM 142 mmol/L (136-145); TCO2 30 mmol/L (25-35); TOTAL PROTEIN 6.1 g/dL (6.3-8.3)
[2016-07-20] MEDS ORDERED: VENTOLIN HFA INH SCH ×2 (07:30)
[2016-07-20] MEDS ORDERED: ASPIRIN EC PO SCH (09:00)
[2016-07-20] MEDS: ELAVIL PO SCH ×2 (09:19→20:32)
[2016-07-20] MEDS: PRILOSEC PO SCH ×2 (09:19→20:33)
[2016-07-20] MEDS: ASPIRIN EC PO SCH (09:19)
[2016-07-20] MEDS: ELIQUIS PO SCH ×2 (09:19→20:32)
[2016-07-20] MEDS: NITROGLYCERIN SL PRN ×2 (09:25→09:58)
[2016-07-20] MEDS ORDERED: DILAUDID IV ONE (10:10)
[2016-07-20] MEDS ORDERED: MAGNESIUM SULFATE 2 GM/S.W.I. 2 GM/50 ML IVPB IV ONE (11:07)
[2016-07-20] MEDS ORDERED: NS 500 ML ONE (11:27)
[2016-07-20] MEDS: DILAUDID IV PRN ×3 (12:59→20:35)
--- NOTE | 2016-07-20 13:43 | Diag Imaging Result Doc PS360 ---
EXAM: US ABDOMEN-COMPLETE HISTORY: abd/epigastric pain TECHNIQUE: COMPARISON: 01/16/2016 FINDINGS: Normal pancreas and aorta. Normal inferior vena cava. No focal hepatic abnormality although believe there is mild fatty infiltration of the liver. Normal right kidney. No hydronephrosis. The gallbladder has been removed. Common bile duct measures 6 mm. Spleen is not enlarged. No ascites. A 3 cm cyst arises from the left kidney. No other renal abnormality. IMPRESSION: 1.Cholecystectomy 2.Left renal cyst 3.Mild fatty infiltration of the liver Electronically signed by Shaggy Smith 07/20/2016 1:41 PM
--- NOTE | 2016-07-20 15:18 | PROGRESS NOTE ---
DATE: 07/20/2016 SUBJECTIVE: This patient is still complaining of chest pain, it is midsternal chest pain and dull and some shortness of breath. Actually, this patient has been getting chemotherapy and radiotherapy before coming to the hospital and everything started after that. At the moment of my evaluation, she already had the IV medication for pain and she was talking and not complaining of any pain at that moment. OBJECTIVE: Vital Signs: Temperature 97.3 degrees, pulse 79, respiratory rate 18, blood pressure 146/65, oxygen saturation 95% on room air. HEENT: Head normocephalic. No trauma. PERRLA. Neck: Supple. No JVD. No masses. Central trachea. Chest: Clear to auscultation. No wheezing. No rales. Cardiovascular: Regular rate and rhythm. Abdomen: Soft. This patient has a colostomy bag with no drainage around it with brown loose stools, soft, mild tenderness to palpation at the level of the epigastric area. Extremities: No edema. No clubbing. No cyanosis. Neurological: The patient is alert and oriented x3. No focal deficits. LABORATORY: WBC 5.8, hemoglobin 11.1, hematocrit 34, platelets 164,000. Sodium 142, potassium 4.3, chloride 101, bicarbonate 30. BUN 14, creatinine 0.8, glucose 107, calcium 8.6, magnesium 1.2, alkaline phosphatase 152, troponin less than 0.01 x 3. ASSESSMENT AND PLAN: 1. Atypical chest pain with epigastric abdominal pain. Cardiac enzymes have been negative so far. Tomorrow we will repeat an EKG. I do not think this is related with any cardiac problem. It looks like this is related with cancer treatment. Pending echocardiogram and probably this patient can be discharged tomorrow. 2. Small cell lung cancer. We will continue Dr. Damon's recommendation. 3. Chronic pancreatitis. Continue with the same medication and treatment. 4. Type 2 diabetes. Continue with pattern of blood sugar, sliding scale insulin and diabetic diet. 5. Tobacco abuse. This patient has been advised against tobacco abuse. We will continue with daily cessation education. cc: Agustin Zhao MD
[2016-07-21] MEDS: DILAUDID IV PRN ×4 (00:18→10:49)
--- NOTE | 2016-07-21 05:40 | EKG Report ---
Test Performed on : 07/20/2016 06:19:32 AM Test Reason : cp Blood Pressure : / mmHG Vent. Rate : 090 BPM Atrial Rate : 090 BPM P-R Int : 138 ms QRS Dur : 072 ms QT Int : 362 ms P-R-T Axes : 077 063 072 degrees QTc Int : 442 ms Normal sinus rhythm. Right atrial enlargement Borderline ECG When compared with ECG of 19-JUL-2016 15:57, (Unconfirmed) No significant change was found Confirmed by Real DAVIS, Evens Guthrie ([id number]) on 07/22/2016 8:34:10 AM
[2016-07-21 06:03] LABS: BASO% 0.7 % (0.0-0.8); EOS# 0.02 X1000 (0.0-0.7); EOS% 0.3 % (0.0-10.0); HEMATOCRIT 32.8 % (37.0-47.0); HEMOGLOBIN 10.6 g/dL (12.0-16.0); IMM GRAN# 0.07 X1000 (0.0-0.04); IMM GRAN% 1.2 % (0.0-0.5); LYMPH# 2.52 X1000 (1.2-3.4); MANUAL DIFF NEEDED? NO; MCH 27.8 PG (27-31); MCHC 32.3 g/dL (33-37); MCV 86.1 FL (81-99); MONO# 0.03 X1000 (0.11-0.59); MONO% 0.5 % (1.7-9.3); MPV 10.2 FL (7.4-10.4); NEUT% 55.3 % (42.2-75.2); PLT 146 X1000 (130-400); RBC 3.81 XMIL (4.2-5.4)
[2016-07-21] MEDS: HUMULIN R SUBQ SCH ×2 (06:17→10:50)
[2016-07-21 06:22] LABS: AGAP 10; ALBUMIN 3.7 g/dL (3.5-5.0); ALKALINE PHOSPHATASE 144 U/L (32-104); BUN 15 mg/dL (8-22); CALCIUM 9.3 mg/dL (8.8-10.2); CHLORIDE 99 mmol/L (98-107); COSMO 278; GOT 31 U/L (10-30); GPT 27 U/L (10-36); POTASSIUM 5.1 mmol/L (3.5-5.1); SODIUM 138 mmol/L (136-145); TCO2 29 mmol/L (25-35); TOTAL BILIRUBIN 0.26 mg/dL (0.20-1.00); TOTAL PROTEIN 6.3 g/dL (6.3-8.3)
--- NOTE | 2016-07-21 07:27 | EKG Report ---
Test Performed on : 07/19/2016 3:57:55 PM Test Reason : No order in [facility] Blood Pressure : / mmHG Vent. Rate : 090 BPM Atrial Rate : 090 BPM P-R Int : 136 ms QRS Dur : 074 ms QT Int : 372 ms P-R-T Axes : 067 046 062 degrees QTc Int : 455 ms Normal sinus rhythm. Possible Left atrial enlargement Borderline ECG When compared with ECG of 11-JUN-2016 16:29, No significant change was found Unconfirmed Result
[2016-07-21 08:04] VITALS: BP 152/68
--- NOTE | 2016-07-21 09:43 | ECHO REPORT ---
ORDER DATE: 07/20/2016 ECHOCARDIOGRAPHIC MEASUREMENTS: 1. Interventricular septum 1, left ventricular posterior wall 1, diastolic diameter 3.5, left atrium 3.5, aorta 2.5. 2. Normal left ventricular cavity size. Estimated ejection fraction of 65%. Mitral valve was normal. Tricuspid valve was normal. Aortic valve leaflets are trileaflet. 3. Pulmonic valve was normal. There is trace mitral regurgitation. 4. Peak velocity across the aortic valve less than 2 m/sec by Doppler studies. There is no aortic stenosis or regurgitation. 5. There is trace tricuspid regurgitation. Peak velocity across the tricuspid valve less than 2 m/sec. 6. There is no pericardial effusion or obvious intracardiac mass or thrombus seen. cc: MD Nunu Hoffman CRNP
[2016-07-21] MEDS: ELIQUIS PO SCH (09:44)
[2016-07-21] MEDS: PRILOSEC PO SCH (09:44)
[2016-07-21] MEDS: ASPIRIN EC PO SCH (09:44)
[2016-07-21] MEDS: ELAVIL PO SCH (09:45)
--- NOTE | 2016-07-21 16:27 | CONSULTATION ---
DATE OF CONSULTATION: 07/21/2016 REFERRING PHYSICIAN: Dr. Zhao. REASON FOR REFERRAL: Atypical chest pain, small-cell lung cancer, known to our service. HISTORY OF PRESENT ILLNESS: Ms. Trinh Rivera is a very pleasant, 65-year-old woman well known to our service secondary to a history of small cell lung cancer. She has been undergoing chemotherapy with cisplatin and etoposide and has completed a total of 3 cycles. Her last treatment was on July 16, 2016. She was admitted to [facility] with complaints of shortness of breath and abdominal and chest pain. A full cardiac workup has been performed and thus far is negative, in addition to an abdominal ultrasound which showed a left renal cyst and mild fatty infiltration of the liver. She has been admitted for continued observation and pain control. The hematology/oncology service was placed on consult to provide further workup and treatment options. PAST MEDICAL HISTORY: 1. Small-cell lung cancer. 2. Diabetes mellitus type 2. 3. Cirrhosis. 4. GERD. 5. Neuropathy. 6. Chronic pancreatitis. PAST SURGICAL HISTORY: 1. section. 2. Colostomy. 3. Lung biopsy. 4. Cholecystectomy. SOCIAL HISTORY: The patient is a current smoker. Denies alcohol or illicit drug use. FAMILY HISTORY: Positive for lung, pancreatic, and breast cancer on her father's side of the family. ALLERGIES: Morphine and penicillin. MEDICATIONS: As per medication sheet. REVIEW OF SYSTEMS: As per HPI. Otherwise, a 12-point review of systems was negative. PHYSICAL EXAMINATION: General: The patient appears to be in some mild distress and is complaining of chest pain. Vital Signs: Blood pressure 152/68, pulse 103, respirations 21, temperature 98.5 degrees Fahrenheit, O2 saturation 98% on 2 L nasal cannula. HEENT: Head normocephalic, atraumatic. Mucosa is pale and moist. Pupils reactive to light. Oropharynx clear. Neck: Supple. No lymphadenopathy or thyromegaly. Cardiovascular: S1, S2. Tachycardic. No murmurs noted. Respiratory: Breath sounds clear to auscultation bilaterally. No rhonchi, rales or wheezing noted. Abdomen: Soft, nontender, nondistended. Positive for bowel sounds. Extremities: No evidence of edema, DVT, or cyanosis. Skin: No rashes or lesions noted. Neurological: No focal neurological deficits. ASSESSMENT: 1. Small-cell lung cancer. 2. Atypical chest pain. 3. Diabetes mellitus type 2. 4. Tobacco abuse. PLAN: 1. The patient is currently undergoing chemotherapy with cisplatin and etoposide. Has completed a total of 3 cycles, her last treatment being July 16, 2016. Cycle 4 is scheduled for August 04, 2016 pending her hospital course. She has received Neulasta in the past. Her last dose of Neulasta was on June 20, 2016. 2. Workup thus far has been negative for any underlying cardiac issue. Ultrasound was essentially negative with the exception of a renal cyst and fatty infiltration of the liver. We agree with present management as per the hospitalist and we will continue to follow along with you. 3. She is currently on sliding scale insulin and is being managed by the hospitalist. 4. Smoking cessation has been encouraged. Thank you for this consult and allowing us to take part in the care of this patient. Dictated by MARTIN Alexander for Angela Damon MD cc: Angela Damon MD
--- NOTE | 2016-07-22 07:23 | DISCHARGE SUMMARY ---
ADMISSION DATE: 07/19/2016 DISCHARGE DATE: 07/21/2016 CONSULTATIONS: Dr. Angela Damon with Hematology-Oncology. PERTINENT PROCEDURES: 1. Echocardiogram showed an EF of 65%. 2. Abdominal ultrasound showed cholecystectomy, left renal cyst and mild fatty infiltration of the liver. DISCHARGE DIAGNOSES: 1. Atypical chest pain with epigastric abdominal pain 2. Small-cell lung cancer. 3. Chronic pancreatitis. 4. Diabetes mellitus type 2. 5. Tobacco abuse. HOSPITAL COURSE: Ms. Rivera is a 65-year-old, female known to our service with recent diagnosis of small-cell carcinoma of the lung followed by Dr. Damon. Undergoes chemo and radiation. The patient came to the ED, presenting with nausea, shortness of breath, abdominal epigastric-type pain, chest pain since her radiation the day before her admission. She had chemo on Thursday and noticed feet swelling but resolved the next day. Her cardiac enzymes have remained negative. Her EKG shows no ST elevations. She did get relief with pain medication. She did state that the pain radiates down into her epigastric region. It is intermittent and it started since she had her radiation treatment. Again, serial cardiac enzymes were negative. EKG, along with repeat EKG did not show any ST changes. Abdominal ultrasound was done that showed a cholecystectomy, left renal cysts and mild fatty infiltration of the liver. The patient was started on a PPI b.i.d. She underwent a normal echocardiogram. This atypical chest pain with epigastric abdominal pain was more related with her recent cancer treatment. Nothing cardiac in nature. She will continue to follow with Dr. Damon, as well as her recommendation. The patient was educated daily against tobacco abuse, as well as daily cessation education. Ms. Rivera is being discharged home today. VITAL SIGNS: Temperature is 98.5 degrees, heart rate 103, respirations 21, blood pressure 152/68, O2 is 98%. DISCHARGE DIET: Diabetic. DISCHARGE MEDICATIONS: 1. Ventolin inhaler 2 puffs inhaled b.i.d. 2. Amitriptyline 25 mg p.o. b.i.d. 3. Eliquis 5 mg p.o. b.i.d. 4. Neurontin 100 mg p.o. q.8 hours p.r.n. 5. Lantus subcutaneous q.a.m. as indicated. 6. Prilosec 40 mg p.o. q.a.m. 7. Compazine 5 mg p.o. 3-4 times a day p.r.n. FOLLOWUP: The patient is being discharged home. She can follow up with her primary care physician, as well as Dr. Damon to resume her cancer treatments. The patient can return to the ED for any worsening of symptoms. TIME SPENT: Discharge time was 30 minutes. Dictated by MARTIN Sanchez for Kayy Land MD cc: MD Angela Daniel MD [facility]
== END 2016-07-21 14:34 | disposition home or self-care (01) ==
LOC: ED 15:47 → SUATTDRO 19:08 → 3N 19:08
PROVIDERS: ATTEND Internal Medicine

== ENCOUNTER 2016-08-21 09:07 | Inpatient (IN) ==
[2016-08-21] MEDS ORDERED: ZOFRAN IV ONE (09:34)
[2016-08-21] MEDS ORDERED: NS 1,000 ML IV ONE (09:34)
[2016-08-21] MEDS ORDERED: DILAUDID IV ONE (09:34)
--- NOTE | 2016-08-21 09:34 | ED EKG INTERP ---
This chart was entered by Elina Julian Scribe, acting as scribe for Nico Cochran MD. EKG Interpretation - EKG Time of EKG reading by physician:: 09:03 EKG Read and Signed by:: Nico Cochran EKG Interpretation (*Must complete 3 of following elements*): Abnormal Rate: 107 Rhythm: sinus tachy [place]: normal QRS: other (bilatrial enlargment) [place] Interval: normal This chart was documented by the indicated scribe, (Elina Julian Scribe) and accurately reflects the services I performed and decisions made by scDimas Wenli X, MD, as attested by the provider's signature.
[2016-08-21 10:27] LABS: AGAP 16; ALBUMIN 4.1 g/dL (3.5-5.0); ALKALINE PHOSPHATASE 143 U/L (32-104); AMYLASE 48 U/L (20-200); BUN 6 mg/dL (8-22); CALCIUM 8.1 mg/dL (8.8-10.2); CHLORIDE 100 mmol/L (98-107); COSMO 275; GOT 14 U/L (10-30); GPT 9 U/L (10-36); LIPASE 7 U/L (13-60); SODIUM 138 mmol/L (136-145); TCO2 22 mmol/L (25-35); TOTAL PROTEIN 7.1 g/dL (6.3-8.3)
[2016-08-21 10:29] LABS: BASO% 1.6 % (0.0-0.8); EOS# 0.12 X1000 (0.0-0.7); EOS% 6.4 % (0.0-10.0); HEMATOCRIT 31.1 % (37.0-47.0); HEMOGLOBIN 10.3 g/dL (12.0-16.0); IMM GRAN# 0.04 X1000 (0.0-0.04); IMM GRAN% 2.1 % (0.0-0.5); LYMPH# 0.97 X1000 (1.2-3.4); LYMPH% 51.9 % (20.5-51.1); MANUAL DIFF NEEDED? NO; MCH 28.7 PG (27-31); MCHC 33.1 g/dL (33-37); MCV 86.6 FL (81-99); MONO# 0.42 X1000 (0.11-0.59); MONO% 22.5 % (1.7-9.3); MPV 10.7 FL (7.4-10.4); NEUT% 15.5 % (42.2-75.2); PLT 154 X1000 (130-400); RBC 3.59 XMIL (4.2-5.4)
[2016-08-21 10:43] LABS: MAGNESIUM 0.8 mg/dL (1.5-2.7)
[2016-08-21] MEDS ORDERED: MAGNESIUM SULFATE 2 GM/S.W.I. 2 GM/50 ML IVPB IV ONE (10:45)
--- NOTE | 2016-08-21 10:51 | Diag Imaging Result Doc PS360 ---
EXAM: FLAT/UPRIGHT ABD/1 VIEW CHEST HISTORY: ABd pain/CP TECHNIQUE: Flat and upright abdomen with one view chest COMMENT: There is an apparent ostomy in the left lower quadrant. There is stool throughout the colon. There is some fluid in the stomach. The small bowel is not distended. There are numerous phleboliths in the pelvis. There is curvature of the thoracic the lumbar spine with convexity to the right. There is no evidence organomegaly or mass. The appearance of the chest has not changed significantly since 08/11/2016. There is probable COPD and apical pleural scarring. IMPRESSION: Mild constipation. COPD. Electronically signed by Deonte Patterson 08/21/2016 10:49 AM
[2016-08-21 12:29] LABS: BILIRUBIN URINE NEGATIVE (NEGATIVE); BLOOD URINE NEGATIVE (NEGATIVE); COLOR YELLOW; GLUCOSE URINE NEGATIVE (NEGATIVE); LEUKOCYTES URINE NEGATIVE (NEGATIVE); NITRITE URINE NEGATIVE (NEGATIVE); PH URINE 5.5; PROTEIN URINE NEGATIVE (NEGATIVE); SP GRAVITY URINE 1.008; TURBIDITY URINE CLEAR (CLEAR); UROBILINOGEN URINE NORMAL (NORMAL)
[2016-08-21 12:30] LABS: UR EPITHELIAL CELLS <10 /HPF (<10); URINE BACTERIA NEGATIVE /HPF; URINE CULTURE NEEDED? NO; URINE RBC <10 /HPF (<10); URINE WBC <10 /HPF (<10)
[2016-08-21 12:40] LABS: URINE MICRO REVIEW NEEDED? NO
[2016-08-21 12:48] LABS: URINE SOURCE CLEAN CATCH
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
[2016-08-21] MEDS ORDERED: ZOFRAN IV PRN (13:52)
[2016-08-21] MEDS ORDERED: COMPAZINE PO PRN (14:13)
--- NOTE | 2016-08-21 14:43 | Diag Imaging Result Doc PS360 ---
EXAM: THORAX/ABDOMEN/PELVIS - 08/21/2016 HISTORY: IV contrast only TECHNIQUE: With intravenous contrast only per request the referring provider. Dose reduction protocol. COMPARISON: 05/22/2016 FINDINGS: CT thorax: The left hilar mass/adenopathy and the mediastinal adenopathy have decreased substantially compared to the 05/22/2016 CT thorax. There is residual mild fullness at the AP window and subcarinal mediastinal, although it is possible this could relate to posttreatment scarring. There are COPD changes. There is been near resolution of perihilar infiltrate on the left. There is residual small pleural-based opacity at the superior medial left lower lobe, possibly representing scarring. There is no other consolidation, pleural effusion, or pneumothorax identified. CT abdomen and pelvis: There is evidence of chronic pancreatitis with multiple pancreatic calcifications and some dilatation of the pancreatic duct, similar to the prior exam. There is no acute pancreatic inflammation identified. Possible pseudocyst superior to the pancreatic head on the prior exam is not identified on this exam. There are postsurgical changes of cholecystectomy. There is been interval decrease in biliary ductal dilatation. There is mild residual biliary ductal dilatation, which can be seen with postcholecystectomy state. There is no discrete pancreatic mass identified. There are no acute analysis of the liver, spleen, adrenal glands, or kidneys identified. There are stable cysts at the lower left kidney. There is no hydronephrosis. There are no substantial enlarged lymph nodes identified. There is no evidence of bowel obstruction. The appendix is unremarkable. There is left lower quadrant colostomy again seen. There is uncomplicated diverticulosis at the sigmoid colon. There is no abscess identified. There is no free air. There is no substantial free fluid seen. IMPRESSION: CT thorax: Substantial decrease in left hilar mass/adenopathy and mediastinal adenopathy compared to the 05/22/[address] abdomen and pelvis: Evidence of chronic pancreatitis. No evidence of acute pancreatitis. No evidence of pseudocyst at this time. Interval decrease in biliary ductal dilatation. Left lower quadrant colostomy. Uncomplicated diverticulosis at sigmoid colon. Electronically signed by Dallas Larsen 08/21/2016 2:41 PM
[2016-08-21] MEDS: NS 1,000 ML IV SCH (15:41)
[2016-08-21] MEDS ORDERED: DUONEB (A & A) INH PRN (15:59)
--- NOTE | 2016-08-21 16:00 | EKG Report ---
Test Performed on : 08/21/2016 09:03:12 AM Test Reason : ED. NOT ORDERED IN [place] Blood Pressure : / mmHG Vent. Rate : 107 BPM Atrial Rate : 107 BPM P-R Int : 148 ms QRS Dur : 070 ms QT Int : 346 ms P-R-T Axes : 078 050 067 degrees QTc Int : 461 ms Sinus tachycardia. Biatrial enlargement Abnormal ECG When compared with ECG of 11-AUG-2016 10:59, No significant change was found Unconfirmed Result
[2016-08-21] MEDS: HUMALOG SUBQ SCH ×2 (16:45→21:44)
[2016-08-21] MEDS: ZITHROMAX 500 MG/NS 500 MG/250 ML IVPB IV SCH (17:39)
[2016-08-21] MEDS ORDERED: MAGNESIUM SULFATE 4 GM/S.W.I. 4 GM/100 ML IVPB IV ONE (18:00)
[2016-08-21] MEDS: DUONEB (A & A) INH SCH ×2 (19:07→22:50)
[2016-08-21] MEDS: VENTOLIN HFA INH SCH (19:08)
[2016-08-21] MEDS: ELIQUIS PO SCH (21:44)
[2016-08-21] MEDS: ELAVIL PO SCH (21:44)
[2016-08-22] MEDS: DUONEB (A & A) INH SCH ×6 (03:23→23:14)
[2016-08-22] MEDS: PRILOSEC PO SCH (06:01)
[2016-08-22] MEDS: HUMALOG SUBQ SCH ×4 (06:03→22:20)
[2016-08-22] MEDS: NS 1,000 ML IV SCH ×3 (06:03→22:19)
[2016-08-22] MEDS: VENTOLIN HFA INH SCH ×2 (07:27→19:05)
[2016-08-22 07:37] LABS: HEMATOCRIT 28.7 % (37.0-47.0); HEMOGLOBIN 9.4 g/dL (12.0-16.0); MCH 28.3 PG (27-31); MCHC 32.8 g/dL (33-37); MCV 86.4 FL (81-99); RBC 3.32 XMIL (4.2-5.4)
[2016-08-22 07:54] LABS: AGAP 11; BUN 3 mg/dL (8-22); CALCIUM 7.8 mg/dL (8.8-10.2); CHLORIDE 105 mmol/L (98-107); COSMO 274; POTASSIUM 4.1 mmol/L (3.5-5.1); SODIUM 139 mmol/L (136-145); TCO2 23 mmol/L (25-35)
[2016-08-22] MEDS: ELAVIL PO SCH ×2 (08:23→20:56)
[2016-08-22] MEDS: ELIQUIS PO SCH ×2 (08:23→20:56)
[2016-08-22] MEDS ORDERED: NEURONTIN PO PRN (12:28)
[2016-08-22 12:37] LABS: BASO% 1.2 % (0.0-0.8); EOS% 5.8 % (0.0-10.0); HEMATOCRIT 27.8 % (37.0-47.0); IMM GRAN# 0.02 X1000 (0.0-0.04); IMM GRAN% 1.2 % (0.0-0.5); LYMPH# 0.91 X1000 (1.2-3.4); LYMPH% 52.6 % (20.5-51.1); MANUAL DIFF NEEDED? YES; MCH 28.1 PG (27-31); MCHC 32.4 g/dL (33-37); MCV 86.9 FL (81-99); MONO# 0.43 X1000 (0.11-0.59); MONO% 24.9 % (1.7-9.3); MPV 9.6 FL (7.4-10.4); NEUT% 14.3 % (42.2-75.2); PLT 179 X1000 (130-400)
[2016-08-22] MEDS: NORCO-7.5 PO PRN ×3 (12:45→22:24)
[2016-08-22 13:02] LABS: EOS 6 % (1-10); LYMPHS 52 % (21-51); MONO 14 % (1-9)
[2016-08-22] MEDS: ULTRAM PO PRN ×2 (14:40→18:58)
--- NOTE | 2016-08-22 14:55 | PROGRESS NOTE ---
DATE: 08/22/2016 SUBJECTIVE: Today Ms. Rivera referred to be doing a lot better. She does not have any more nausea, vomiting and there is nothing that is coming out of her rectum anymore. She just changed her ostomy bag and is looking great. OBJECTIVE: Vital signs: Blood pressure is 126/68, pulse of 103, respirations 19, temperature is 98.0 degrees. General: Ms. Rivera is a 65-year-old female. She is in bed, not in any remarkable distress. HEENT: Mucosa is slightly dry. Anicteric. Acyanotic. Patient has fossae of alopecia likely secondary to underlying chemotherapy. Chest: Good air entry bilateral. No crepitations. No rhonchi. Cardiovascular: Regular rate and rhythm. Abdomen: Soft. Mildly tender in the epigastrium. There is a left-sided ostomy bag in place. Extremities: No pedal edema. AUCTION ASSISTANT: Patient is awake and alert and oriented. LABORATORY DATA: The hematology is still pending. Chemistries reviewed, completely normal. ASSESSMENT: 1. Nausea, vomiting seems to have improved. 2. History of small cell lung cancer. The patient is currently on chemotherapy and radiation. Follows up with Dr. Woodard and Dr. Damon. The recent CT scan of the chest shows some remarkable improvement on the disease process. 3. Constipation. 4. History of chronic pancreatitis. 5. Clinical dehydration. PLAN: In general I think Ms. Navarro is doing a whole lot better today. Nausea, vomiting has completely resolved which I think is probably due to the underlying constipation. We are going to continue with the IV fluids. We are going to start the patient on regular diet today. Restart her on her pain medications. Hopefully by tomorrow if she is clinically stable and nausea vomiting continues to be abated then will be able to discharge her tomorrow. cc: Juan Rodriguez MD
[2016-08-22] MEDS: ZITHROMAX 500 MG/NS 500 MG/250 ML IVPB IV SCH (17:21)
--- NOTE | 2016-08-22 18:39 | CONSULTATION ---
DATE OF CONSULTATION: 08/22/2016 Admission is for lung cancer, patient known. REQUESTED BY: The hospitalist service. HISTORY OF PRESENT ILLNESS: Ms. Rivera is a 65-year-old female, who is known to us as we are currently treating her for limited stage small cell lung cancer. Patient has been receiving concurrent chemotherapy and radiation. It appears that the patient presented to the emergency department complaining of nausea and vomiting. She has also been having diarrhea. The patient is status post 4 cycles of cisplatin and etoposide. She last had her treatment on 08/05/2016. She is due for cycle #5 on 08/26/2016. The patient's main complaint right now is that she is hungry and is in some pain. It looks like they have yet to start her on any pain medication as of yet. PAST MEDICAL HISTORY: 1. Small-cell lung cancer. Currently undergoing chemoradiation. 2. Postobstructive pneumonia. 3. Diabetes mellitus. 4. Diabetic neuropathy. 5. GERD. 6. Chronic pancreatitis. 7. Nicotine dependence. 8. Cirrhosis of the liver. 9. Chronic pain. PAST SURGICAL HISTORY: 1. The patient is status post cholecystectomy. 2. section. 3. Skin lesion excision from the left side of her head. 4. Colostomy. 5. Lung biopsy. SOCIAL HISTORY: Patient continues to smoke 1-2 cigarettes per day. The patient has been smoking since the age of 16. She denies any alcohol or illicit drug use. She currently lives with her son. Her family is not very supportive. FAMILY HISTORY: She has a family history of lung, pancreatic and breast cancer. REVIEW OF SYSTEMS: Ten point review of systems has been completed and is negative except for those in the HPI. PHYSICAL EXAMINATION: Vital Signs: Temperature 98.0 degrees, heart rate 103, respirations 19, blood pressure 126/68, O2 saturation 99% on room air. General: female, lying in hospital bed. She is in no acute distress. She is asking to eat food. There is no one at the bedside. HEENT: Head appears to be normocephalic atraumatic. Eyes: Pupils equal, round, reactive. Ears, nose, throat, neck, and mouth: Oral mucosa is normal. Trachea is midline. Gross auditory acuity is intact. Cardiovascular: S1, S2 heard without any murmurs, gallops, rubs appreciated. Respiratory: There is some scattered wheezing bilaterally. No rhonchi noted. Normal respiratory effort. Gastrointestinal: Abdomen is soft. She has some diffuse tenderness. Ostomy in place on the left lower side. Extremities: The patient has no edema noted. Neurologic: Patient is alert, oriented, and does not seem to have any focal motor deficits. LABS AND STUDIES: White blood cell 1.73, hemoglobin 9.0, hematocrit 27.8, platelets 179,000. ANC 0.25. Sodium 139, potassium 4.1, chloride 105, CO2 23, BUN 3, creatinine 0.7, glucose 97, magnesium 2.0 up from 0.7, previously. Iron saturation 36. Total iron is 78. Ferritin is 166. B12 was 306. Folate is 15.2. A CT of the chest, abdomen and pelvis done 2016 has the impression that there is substantial decrease in the left hilar mass/adenopathy , mediastinal adenopathy compared to the CT done on 05/22/2016. COPD. CT of abdomen and pelvis shows evidence of chronic pancreatitis. No evidence of acute pancreatitis. No evidence of pseudocyst. Decrease in bilateral ductal dilatation. Left lower quadrant colostomy noted. Uncomplicated diverticulosis at the sigmoid colon. ASSESSMENT AND PLAN: 1. Limited stage small cell lung cancer. Patient is currently receiving concurrent chemoradiation. Treatment will be on hold while the patient is in the hospital. She will be re-evaluated and consider to continue treatment once she has been released from the hospital. 2. Nausea and vomiting. It seems to be improved. She is receiving nausea medicines p.r.n. She is also receiving IV fluids. 3. Bronchitis/pneumonia. Patient continues on azithromycin. She is also receiving nebulizer treatments and using albuterol inhaler. Continue O2 support. 4. Chronic pain. Continue all patient's current pain medications. 5. Neutropenia. This is secondary to treatment. The patient is believed to be at her hugo. We will not initiate any growth factor unless she starts to experience fever. Monitor closely for fever. Thank you for consulting us on this Ms. Rivera while she is here at [facility]. Continue to follow along and adjust our plan per her hospital course. Dictated by FELECIA Stokes for Angela Damon MD cc: Angela Damon MD I have seen and examined the patient and agree with the above A/P. Angela Damon MD [facility]D
[2016-08-23] MEDS: DUONEB (A & A) INH SCH ×3 (03:34→11:09)
[2016-08-23] MEDS: NORCO-7.5 PO PRN ×3 (03:58→13:49)
[2016-08-23] MEDS: NS 1,000 ML IV SCH (05:41)
[2016-08-23 05:56] LABS: HEMATOCRIT 25.7 % (37.0-47.0); HEMOGLOBIN 8.2 g/dL (12.0-16.0); MCHC 31.9 g/dL (33-37); MCV 87.7 FL (81-99); MPV 9.8 FL (7.4-10.4); RBC 2.93 XMIL (4.2-5.4)
[2016-08-23 06:25] LABS: AGAP 14; BUN 6 mg/dL (8-22); CALCIUM 8.1 mg/dL (8.8-10.2); CHLORIDE 105 mmol/L (98-107); COSMO 283; POTASSIUM 4.1 mmol/L (3.5-5.1); SODIUM 142 mmol/L (136-145); TCO2 23 mmol/L (25-35)
[2016-08-23] MEDS: PRILOSEC PO SCH (06:47)
[2016-08-23] MEDS: HUMALOG SUBQ SCH ×2 (06:47→13:50)
[2016-08-23] MEDS ORDERED: MAGNESIUM SULFATE 2 GM/S.W.I. 2 GM/50 ML IVPB IV ONE (08:51)
[2016-08-23] MEDS: ELIQUIS PO SCH (08:56)
[2016-08-23] MEDS: ELAVIL PO SCH (08:56)
[2016-08-23] MEDS ORDERED: MAG-OX PO SCH (09:00)
[2016-08-23] MEDS: VENTOLIN HFA INH SCH (11:10)
[2016-08-23 12:24] VITALS: BP 132/71
--- NOTE | 2016-08-24 14:37 | DISCHARGE SUMMARY ---
ADMISSION DATE: 08/21/2016 DISCHARGE DATE: 08/23/2016 CONSULTATION DURING THIS ADMISSION: Hematology-Oncology was consulted. Patient was seen by Angela Damon MD. INVASIVE PROCEDURES DONE DURING ADMISSION: None. IMAGING STUDIES OF SIGNIFICANCE: A CT scan of the chest, abdomen and pelvis was done which shows COPD changes. There was near resolution of the perihilar infiltrate on the left. CT of the abdomen shows evidence of chronic pancreatitis. No evidence of acute disease. There is a left lower quadrant colostomy, uncomplicated diverticulosis at the sigmoid. ADMISSION DIAGNOSES: 1. Nausea vomiting. 2. Rectal soiling. 3. History of small cell cancer. DISCHARGE DIAGNOSES: 1. Nausea and vomiting, resolved. 2. Constipation, improved. 3. Chronic pancreatitis. 4. Clinical dehydration, improved. 5. History of small cell lung cancer, status post chemotherapy and radiation. Follow-up CT scan has shown remarkable improvement. 6. Chronic pancreatitis. DISCHARGE MEDICATIONS: 1. Omeprazole 40 mg daily. 1. Gabapentin 100 mg q.8. 2. Amitriptyline 25 mg b.i.d. 3. Albuterol nebulizers. 4. Apixaban 5 mg b.i.d. 5. Tramadol 50 mg p.o. q.6 hours p.r.n. PRESENTING COMPLAINT: Nausea and vomiting. HISTORY OF PRESENTING COMPLAINT: Ms. Rivera is a 65-year-old female with a history of right lung non-small cell cancer who gets chemotherapy and radiation therapy. Presented to the emergency department due to intractable nausea and vomiting. A CT scan of the abdomen and pelvis was done. There was some constipation. Patient was admitted for further medical care. HOSPITAL COURSE: The patient did pretty well during the hospital stay, was treated symptomatically for the nausea and vomiting, nothing per oral, IV fluids and Hematology/Oncology was consulted. The constipation was also improve with laxatives and subsequently the nausea and vomiting resolved. Patient was also dehydrated and was hydrated with IV fluids. Today, she refers to be feeling a lot better. She has been eating. She has had a regular bowel movement. There was a concern that she had some soiling in her rectum which has resolved since she was in the hospital. DISCHARGE EXAMINATION: Vital signs: Today her blood pressure is 132/71, pulse is 96, respiration is 15, temperature 97.9 degrees. Patient physical exams is completely unremarkable except for her findings in the abdominal wall, including the ostomy bag, which is functional. Laboratory works have also been reviewed. Unremarkable except for mild normocytic anemia, which I think is probably due to dilution. Chemistry has been reviewed. The patient is going to be discharged in stable condition. She has an appointment to follow up with Dr. Nelson Browning, 08/26/2016. She is also going to follow up with her primary care physician. TIME SPENT FOR DISCHARGE: 37 minutes. cc: Juan Rodriguez MD
== END 2016-08-23 15:14 | disposition home health service (06) ==
LOC: SUPCPDRO → ED 09:07 → 3N 13:32
PROVIDERS: ATTEND Internal Medicine